=== PATIENT | female | born 2000 | race Caucasian/White ===

== ENCOUNTER 2020-05-18 12:40 | Emergency (ER) | payer MEDICAID, SELFPAY ==
[2020-05-18 12:45] VITALS: BP 137/93; PULSE 85; RESP 16; TEMP 36.9; O2SAT 98; BMI 29.5
--- NOTE | 2020-05-18 13:06 | ED_ITS ---
HPI - Female Genitourinary General: Chief complaint: Vaginal Bleeding Stated complaint: wants to confirm Time Seen by Provider: 05/18/20 12:45 Source: patient and family Mode of arrival: ambulatory Limitations: no limitations History of Present Illness: HPI Narrative: Maggy is a nice 19-year-old female who comes in complaining of vaginal bleeding. The patient states that she has had 4+ home tests but was seen in [place] ER last night and was told she had a negative urine test. Patient states she is due for her menstrual cycle now and the cramping is typical for her menstrual cycle. He denies any vaginal discharge. She denies any fevers, chills, back pain or other complaints. Patient is just concerned because she states she even had a positive test after going home from [facility] last night. She not tried anything for her cramping or pain. She denies any nausea vomiting or associated symptoms. The abdominal cramping is low in the suprapubic area and intermittent. Associated symptoms: Reports abdominal pain; Deny headache(s), nausea or syncope Review of Systems Const: Denies: fever(s), chills, body aches, fatigue, malaise or diaphoresis Eyes: Denies: change in vision, blurry vision, photophobia, eye discomfort, eye discharge or eye redness ENMT: Denies: throat pain, odynophagia, hoarseness, swelling of lips/tongue, ear or mastoid pain, ear discharge, change in hearing or nasal discharge Card: Denies: chest pain, palpitations, irregular heart rhythm, edema, lightheadedness, syncope, pre-syncope, dyspnea on exertion or orthopnea Resp: Denies: dyspnea, productive cough, non-productive cough, wheezing, hemoptysis or chest congestion GI: Reports: abdominal pain; Denies: nausea, vomiting, hematemesis, coffee ground emesis, heartburn, diarrhea, constipation, GI cramping, hematochezia or melena : Reports: vaginal bleeding; Denies: flank pain, dysuria, urinary frequency, urinary urgency or hematuria Musc: Denies: neck pain, back pain, extremity pain, extremity swelling, joint pain, joint swelling, joint redness, joint warmth or joint stiffness Skin/Breast: Denies: rash, pruritus, erythema or skin tenderness Neuro: Denies: headache(s), numbness in extremities, weakness in extremities, sensory changes, lack of coordination, difficulty walking, dizziness, vertigo, confusion, Slurred speech present or seizure-like activity Say/Lymph: Denies: easy bruising, easy bleeding, petechiae, purpura or enlarged lymph nodes All/Imm: Denies: urticaria, throat swelling, tongue swelling, facial swelling or acute wheezing PFSH ED PFSH: Medical History Fibromyalgia Scoliosis Physical Exam Const: COMMON NORMALS: no acute distress, patient oriented x3, no limitations, healthy appearing and well nourished GENERAL APPEARANCE: cooperative, well kempt and well developed HENMT: COMMON NORMALS: normocephalic, atraumatic, external ears normal, EAC's normal and Normal external nose present HEAD & SCALP: normal to inspection, normocephalic and atraumatic FACE & SINUS: normal facial exam and face symmetric NOSE: Normal external nose present and Normal nares present EXTERNAL EAR: Yes external ears normal EXTERNAL AUDITORY CANAL: EAC's normal MOUTH: Normal oral and palatal mucosa present, lip normal and tongue normal Eye: COMMON NORMALS: Equal, round and reactive pupils present and conjunctivae normal GENERAL EYE: appearance normal, both eyes and all related structures ALIGNMENT: Yes alignment normal PERIORBITAL: periorbital findings normal EYELID: eyelids normal CONJUNCTIVA: Yes conjunctivae normal SCLERA: sclerae normal PUPIL: Yes Equal, round and reactive pupils present Neck/C-Spine: COMMON NORMALS: full ROM, no lymphadenopathy, supple, no meningeal signs and no JVD GENERAL: Yes normal visual inspection and Yes trachea midline Chest: COMMONS NORMALS: normal inspection of the chest and normal palpation of entire chest wall Resp: COMMON NORMALS: normal respiratory effort, No retractions, No use of accessory muscles and clear to auscultation bilaterally EFFORT & INSPECTION: Yes able to speak in complete sentences and Yes symmetric chest movement AUSCULTATION: clear to auscultation bilaterally, no crackles, no rales, no rhonchi and no wheezes Cardio: COMMON NORMALS: no JVD, regular rate, regular rhythm, S1 normal heart sound present and S2 normal heart sound present RATE: regular rate RHYTHM: regular rhythm HEART SOUNDS: S1 normal heart sound present, S2 normal heart sound present, no click, no gallops, no murmurs, no rubs and abnormal split S2 GI: COMMON NORMALS: Soft to palpation and No hepatosplenomegaly present PALPATION: Yes Soft to palpation, No Tenderness to palpation present (GI), No Guarding due to palpation present (GI), No Rigid due to palpation, Yes No hepatosplenomegaly present, No Hernia present, No Palpable mass present and No Pulsatile mass present : COMMON NORMALS: Yes no CVA tenderness BLADDER/KIDNEY EXAM: Yes no CVA tenderness EXTERNAL FEMALE EXAM: No Hernia present Back/Pelvis: COMMON NORMALS: no CVA tenderness, thoracic and lumbar spine normal to inspection, no thoracic nor lumbar tenderness and thoraco-lumbar ROM normal Extremity: COMMON NORMALS: normal to inspection, full ROM, capillary refill normal, no joint enlargement, no clubbing, cyanosis or edema and no calf tenderness Neuro: COMMON NORMALS: patient oriented x3, CN's II-XII intact bilaterally, moves all extremities, no focal motor deficits and no sensory deficits noted MENINGEAL SIGNS: Yes no meningeal signs SPEECH: speech normal Psych: COMMON NORMALS: mental status grossly normal, Normal thought process present, cooperative, normal affect, speech normal and activity/motor behavior normal APPEARANCE: Yes well kempt SPEECH: Yes normal speech THOUGHT PROCESS: Normal thought process present Skin: COMMON NORMALS: no rashes or lesions noted, turgor normal, no jaundice, no petechiae and no mottling GENERAL SKIN EXAM: no rashes or lesions noted and turgor normal Course Vital Signs: Vital signs: Vital Signs Temperature 98.4 F 05/18/20 12:45 Pulse Rate 85 05/18/20 12:45 Respiratory Rate 18 05/18/20 13:15 Blood Pressure 137/93 05/18/20 12:45 Pulse Oximetry 98 05/18/20 12:45 MDM - Female MDM Narrative: Medical decision making narrative: The patient is declining any additional lab work, pelvic exam, pelvic ultrasound or further evaluation. When she found out she was not the patient has become somewhat upset as I believe she wanted to be . She understands that other things such as serious cause of bleeding, appendicitis and multiple other intra-abdominal serious even life-threatening pathologies cannot be ruled out. She wants to go home and she states she plans on taking another home test in 2 days. Patient was again encouraged and offered her further work-up here but she declined. She was to be discharged. She does agree to return should her symptoms change or worsen. The patient was warned but yet she was welcome to return. Lab Data: Labs: Lab Results 05/18/20 Range/Units 13:00 HCG, Qual Negative (Negative) Discharge Plan Discharge Patient Disposition: Home Clinical Impression: Vaginal bleeding Condition: Stable Discharge Orders: Discharge Order (Routine); Ordered 05/18/20 Ordered By: Hollie Goldman Referrals: Nazario Snyder MD [Physician] - 1-3 days Discharge Diet: Advance as tolerated Discharge Activity: Increase activity as tolerated Patient Instructions: Menstruation (ED) Activity Restrictions/Additional Instructions: Please return to the ER immediately for any of the signs or symptoms listed on your discharge instruction sheets, worsening/changing of your symptoms, you are not getting better as quickly as expected, or for ANY other cause or concerns. You have declined any further work-up such as blood work, ultrasound and further investigation as to cause to your cramping. I have recommended this work-up but you have declined. If you change your mind, your bleeding becomes heavier, you develop a fever, you develop vaginal discharge, or you develop urinary symptoms you are free to return at any time for further evaluation and care. If you simply change your mind you are also welcome to return anytime for further evaluation and care. Coding Level of Care Code ED Radio Frequency Engineer for Vilma Suazo
[2020-05-18 13:15] VITALS: RESP 18
[2020-05-18 13:19] LABS: HCG, Serum Qual Negative (Negative)
[2020-05-18 13:52] VITALS: BP 113/85; PULSE 73; RESP 16; O2SAT 98
== END 2020-05-18 13:52 | disposition home or self-care (01) ==
PROVIDERS: Emergency Provider Emergency Medicine
DX: N93.9 Abnormal uterine and vaginal bleeding, unspecified (principal)
CPT/HCPCS: 12345; 36415; 84703; 99281; 99282

== ENCOUNTER → 2020-07-23 08:25 | Outpatient (BNVA) | payer MEDICAID, SELFPAY | PROVIDERS: Visit Provider Obstetrics & Gynecology | DX: Z34.90 Encounter for supervision of normal pregnancy, unspecified, unspecified trimester (principal) | CPT/HCPCS: 84702 ==

== ENCOUNTER → 2021-01-06 09:46 | Day surgery (SDC) | payer MEDICAID, SELFPAY ==
[2021-01-06 10:10] VITALS: BP 137/87; PULSE 99; RESP 16; TEMP 36.7; O2SAT 98
[2021-01-06 12:04] VITALS: BP 137/87; PULSE 99; RESP 16; TEMP 36.7; O2SAT 99
== END ==
PROVIDERS: Visit Provider Family Medicine
DX: O26.899 Other specified pregnancy related conditions, unspecified trimester (principal); Z3A.00 Weeks of gestation of pregnancy not specified; Z67.91 Unspecified blood type, Rh negative
CPT/HCPCS: 36415; 86850; 86900; 90384; 96372

== ENCOUNTER → 2021-01-12 15:19 | Outpatient (BNVA) | payer MEDICAID, SELFPAY | PROVIDERS: Visit Provider Obstetrics & Gynecology | DX: Z34.80 Encounter for supervision of other normal pregnancy, unspecified trimester (principal); Z3A.30 30 weeks gestation of pregnancy | CPT/HCPCS: 82950; 84315; 85025 ==

== ENCOUNTER 2021-01-30 13:27 | Outpatient (CLI) | payer MEDICAID, SELFPAY ==
[2021-01-30 13:44] VITALS: BP 124/83; PULSE 100
[2021-01-30 13:51] VITALS: RESP 16; TEMP 36.6
[2021-01-30 13:58] VITALS: BMI 33.2
[2021-01-30 14:04] LABS: Add Urine Microscopic? NO; Charge for UA Resulting for Rev
[2021-01-30] MEDS: ondansetron 2 mg/ML SDV 2 mL 4 MG IVP (14:07)
[2021-01-30 14:09] LABS: Basophils # 0.1 10^3/uL (0.0-0.1); Basophils % 0.5 %; Eosinophils # 0.1 10^3/uL (0.0-0.8); Eosinophils % 0.5 %; Hemoglobin 12.4 g/dL (11.5-15.3); Lymphocytes # 2.6 10^3/uL (0.8-4.8); Lymphocytes % 21.5 %; Mean Corpuscular HGB Conc 33.5 g/dL (30.0-36.0); Mean Corpuscular Hemoglobin 29.8 pg (28.0-34.0); Mean Corpuscular Volume 88.9 fL (81-99); Mean Platelet Volume 11.6 fL (7.4-10.4); Monocytes # 0.8 10^3/uL (0.2-0.9); Monocytes % 6.4 %; Neutrophils # 8.47 10^3/uL (1.8-7.7); Neutrophils % 70.7 %; Nucleated Red Blood Cells % 0 %; Platelet Count 250 10^3/cmm (130-400); Red Blood Count 4.16 10^6/uL (4.1-5.3); Red Cell Distribution Width 12.8 % (12.1-15.1)
[2021-01-30 14:12] LABS: Bilirubin Urine Neg (Negative); Blood Urine Neg (Negative); Glucose Urine UA Norm (Normal); Ketones Urine 2+ (Negative); Leukocyte Esterase Urine Negative (Negative); Nitrate Urine Negative (Negative); Protein Urine Neg (Negative); Sulfosalicylic Acid Urine Negative (Negative); Urine Appearance Clear (CLEAR); Urine Color Yellow (Yellow); Urobilinogen Urine Norm (Negative); pH Urine 8 (5-7)
[2021-01-30 14:22] VITALS: BP 114/68; PULSE 75
[2021-01-30 14:25] LABS: Alanine Aminotransferase 14 U/L (0-33); Albumin Level 3.4 g/dL (3.5-5.2); Alkaline Phosphatase 103 IU/L (35-105); Aspartate Amino Transferase 16 U/L (0-32); Blood Urea Nitrogen 9 mg/dL (6-20); Calcium 8.1 mg/dL (8.5-10.5); Carbon Dioxide 21 mmol/L (22-29); Chloride 104 mmol/L (98-107); Globulin 3.2 g/dL (1.3-4.6); Glomerular Filtration Rate 201.5 mL/min (90-130); Glucose 78 mg/dL (65-115); Osmolality Calculated 280 mOsm/kg (285-295); Sodium 136 mmol/L (136-145); Total Bilirubin 0.2 mg/dL (0.15-1.2); Total Protein 6.6 g/dL (6.6-8.7); Uric Acid 3.6 mg/dL (2.4-5.7)
[2021-01-30 14:41] VITALS: BP 115/75; PULSE 79
[2021-01-30 14:43] LABS: Urine Creatinine 79 mg/dL (28-217); Urine Protein Random 7 mg/dL
[2021-01-30 14:44] LABS: UPRO/UCREAT Ratio 0.09 mg/mg CR
[2021-01-30 15:01] VITALS: BP 110/73; PULSE 78
== END 2021-01-30 15:35 | disposition home or self-care (01) ==
LOC: OPOB 13:36 → OBGYN 13:37
PROVIDERS: Visit Provider Obstetrics & Gynecology
DX: O21.9 Vomiting of pregnancy, unspecified (principal); Z3A.00 Weeks of gestation of pregnancy not specified
CPT/HCPCS: 59025; 80053; 81003; 82570; 84156; 84550; 85025; 96360; 99211; J2405

== ENCOUNTER → 2021-02-11 13:25 | Outpatient (BNVA) | payer MEDICAID, SELFPAY | PROVIDERS: Visit Provider Nurse Practitioner Women's Health | DX: O99.340 Other mental disorders complicating pregnancy, unspecified trimester (principal); R50.9 Fever, unspecified; F32.9 Major depressive disorder, single episode, unspecified; F41.9 Anxiety disorder, unspecified; Z11.52 Encounter for screening for COVID-19; O99.213 Obesity complicating pregnancy, third trimester | CPT/HCPCS: 84315; 87635 ==

== ENCOUNTER → 2021-02-23 08:30 | Outpatient (BNVA) | payer MEDICAID, SELFPAY | PROVIDERS: Visit Provider Obstetrics & Gynecology | DX: O99.340 Other mental disorders complicating pregnancy, unspecified trimester (principal); F32.9 Major depressive disorder, single episode, unspecified; F41.9 Anxiety disorder, unspecified; Z11.52 Encounter for screening for COVID-19; O99.213 Obesity complicating pregnancy, third trimester | CPT/HCPCS: 84315; 87081 ==

== ENCOUNTER 2021-03-17 12:50 | Outpatient (CLI) | payer MEDICAID, SELFPAY ==
[2021-03-17] VITALS (7 sets, daily range): BP systolic 120–130; BP diastolic 75–92; PULSE 75–91; RESP 18; TEMP 36–36.4; BMI 35.2
--- NOTE | 2021-03-17 15:12 | P.PCN_ITS ---
Procedure/Consent Procedure Narrative: NONSTRESS TEST: Place of test: [facility] Indication: 20-year-old 3 para 0-0-2-0 at 39 weeks and 3 days, abdominal pain/contractions Date and time of test: March 17, 2021, 2:30 PM Baseline: 125 Variability: Moderate variability Accelerations: Accelerations present Decelerations: No decelerations Tocometry: Contractions every 3 to 7 minutes INTERPRETATION: NST reactive, continue kick counts
[2021-03-17] MEDS: hyDROXYzine 25 mg Capsule 50 MG PO (15:21)
== END 2021-03-17 15:35 | disposition home or self-care (01) ==
LOC: OPOB 12:55 → OBGYN 12:56
PROVIDERS: Visit Provider Obstetrics & Gynecology
DX: O26.893 Other specified pregnancy related conditions, third trimester (principal); Z3A.39 39 weeks gestation of pregnancy; R10.9 Unspecified abdominal pain
CPT/HCPCS: 59025; 87635; 99211

== ENCOUNTER 2021-03-18 18:05 | Outpatient (CLI) | payer MEDICAID, SELFPAY ==
[2021-03-18] VITALS (10 sets, daily range): BP systolic 117–150; BP diastolic 69–93; PULSE 69–96; RESP 18; TEMP 36.9; BMI 35.2
--- NOTE | 2021-03-18 20:16 | USR_ITS ---
PROCEDURE INFORMATION: Exam: US Biophysical Profile Without Non-Stress Test Exam date and time: 03/18/2021 8:16 PM Age: 20 years old Clinical indication: status abnormalities: ; Other: Abnormal tracings; Single gestation; Third trimester (28 wks 0 days until delivery); ; Additional info: tracing TECHNIQUE: Imaging protocol: US biophysical profile without non-stress testing. COMPARISON: US OB >= 14 weeks fetus [id number] 11/05/2020 9:33 AM FINDINGS: BIOPHYSICAL PROFILE: Breathin/2 Gross body movements: 2/2 tone: 2/2 Qualitative amniotic fluid: 2/2 Biophysical Profile Score: 8/8 There is a single living intrauterine with a heart rate of 144 bpm. The presentation is cephalic. US/US OB >= 14 weeks fetus [id number] IMPRESSION: Biophysical profile score is 8 out of 8.
[2021-03-18 21:20] LABS: Add Urine Culture? No; Bacteria Urine TRACE /hpf; Bilirubin Urine Neg (Negative); Blood Urine Neg (Negative); Glucose Urine UA Norm (Normal); Ketones Urine Negative (Negative); Leukocyte Esterase Urine Negative (Negative); Mucus Urine TRACE /hpf; Nitrate Urine Negative (Negative); Protein Urine Neg (Negative); RBC Urine 0-4 /hpf (0-2); Specific Gravity, Urine 1.015 (1.005-1.030); Urine Appearance Clear (CLEAR); Urine Color Yellow (Yellow); Urobilinogen Urine Norm (Negative); pH Urine 6 (5-7)
[2021-03-18] MEDS: hyDROXYzine 25 mg Capsule PO (22:27)
== END 2021-03-18 22:34 | disposition home or self-care (01) ==
LOC: OPOB 18:11 → OBGYN 18:13
PROVIDERS: Visit Provider Obstetrics & Gynecology
DX: O26.899 Other specified pregnancy related conditions, unspecified trimester (principal); Z3A.00 Weeks of gestation of pregnancy not specified; R10.9 Unspecified abdominal pain
CPT/HCPCS: 59025; 76805; 81001; 99211

== ENCOUNTER 2021-03-19 06:11 | Inpatient (IN) | payer MEDICAID, SELFPAY ==
[2021-03-19] VITALS (46 sets, daily range): BP systolic 102–178; BP diastolic 50–93; PULSE 60–157; RESP 17–18; O2SAT 97–100; BMI 37.4
[2021-03-19] MEDS: lactated ringers 1,000 ML 999 ML IV (06:21)
[2021-03-19] MEDS: ampicillin 2,000 MG in sodium chloride 0.9% (plus) 50 ML 100 MG IV (06:21)
[2021-03-19] MEDS: fentaNYL 50 mcg/mL INJ 2mL IVP ×2 (06:22→07:35)
[2021-03-19 06:25] LABS: Basophils # 0.1 10^3/uL (0.0-0.1); Basophils % 0.3 %; Hematocrit 37.1 % (37.0-47.0); Hemoglobin 12.6 g/dL (11.5-15.3); Lymphocytes # 1.1 10^3/uL (0.8-4.8); Lymphocytes % 5.6 %; Mean Corpuscular Hemoglobin 29.3 pg (28.0-34.0); Mean Corpuscular Volume 86.3 fL (81-99); Mean Platelet Volume 12.2 fL (7.4-10.4); Monocytes # 0.6 10^3/uL (0.2-0.9); Monocytes % 2.8 %; Neutrophils # 18.25 10^3/uL (1.8-7.7); Neutrophils % 90.8 %; Nucleated Red Blood Cells % 0 %; Platelet Count 266 10^3/cmm (130-400); Red Cell Distribution Width 13.7 % (12.1-15.1); White Blood Count 20.1 10^3/uL (4.0-10.0)
[2021-03-19 07:58] LABS: Amphetamines Screen Urine Negative (Negative); Barbiturates Screen Urine Negative (Negative); Benzodiazepines Screen Urine Negative (Negative); Cocaine Screen Urine Negative (Negative); Opiate Screen Urine Negative (Negative); PCP Screen Urine Negative (Negative); THC Screen Urine Positive (Negative)
[2021-03-19] MEDS: ampicillin 1,000 MG in sodium chloride 0.9% (plus) 50 ML 100 MG IV (09:50)
--- NOTE | 2021-03-19 10:16 | ANES.PREANE2 ---
Pre-Anesthetic Assessment Pre-Anesthetic Assessment: Height/Weight: Height 1.7 m Weight 108.409 kg Pulse Resp BP Pulse Ox 71 17 132/71 100 03/19/21 10:07 03/19/21 07:36 03/19/21 10:07 03/19/21 08:15 Was Beta Kathy taken within 24 hours: N/A Was Clonidine taken within 24 hours: N/A Social: Social History: Tobacco and No alcohol Exam: Pre-Anes Outpt Exam: alert and oriented x 3 Pulmonary: Pulmonary: None reported CV/HEM: CV/HEM: None reported : : None reported Hepatic: Hepatic: None reported GI: GI: None reported Metabolic: Metabolic: None reported Musc/skel: Musc/skel: Lower Back Pain and Scoliosis Neuropsych: Neuropsych: None reported Anesthetic Plan: ASA status: 2 Anesthesia: Regional (specify below) Other: Labor Epdiural; risks and benefits disc in detail, including permanent injuries and failure. Meds/Allergies Current Medications: Current Medications Generic Name Dose Route Start Last Admin Trade Name Sammyq PRN Reason Stop Dose Admin Fentanyl 25 - 100 mcg 03/19/21 05:47 03/19/21 07:35 Fentanyl 50 Mcg/ Ml Inj 2ml IVP 25 mcg Q1H PRN Administration SEVERE PAIN Ropivacaine 200 mg in 100 mls @ 13 mls/hr 03/19/21 06:00 03/19/21 08:13 Naropin Premix EPIDURAL 13 mls/hr .[id number] KEVIN Administration Lactated Ringer's 1,000 mls @ 999 m ls/hr 03/19/21 05:47 03/19/21 06:21 Lactated Ringers IV 999 mls/hr .Q1H1M PRN Administration See label comment s Ampicillin Sodium 1,000 mg/ 50 mls @ 100 mls/ hr 03/19/21 10:00 03/19/21 09:50 Sodium Chloride IV 100 mls/hr Q4H KEVIN Administration Protocol PFSH Anesthesia PFSH: Medical History Anxiety and depression Chronic post-traumatic stress disorder (PTSD) Fibromyalgia No pertinent past medical history neghx: htn,dm,thyroid,dvt/pe,herpes -----denies partner with herpes Scoliosis Surgical History History of tonsillectomy and adenoidectomy (~2012) Hx of appendectomy (~2014) Family History Family/Other Breast cancer Maternal Aunt x2-- dx age unknown Father Diabetes Mother Hypertension Thyroid disease Grandmother Stroke Maternal and Paternal Grandfather Stroke Maternal Denies family history of Colon cancer Ovarian cancer Heart disease Uterine cancer Social History Additional social history: - Tobacco use: Never Alcohol use: occasionally prior to Drug use: Marijuana-- Medical Marijuana Card -- few times daily Female Reproductive History: : 3 Data Anesthesia CBC & Chem 7: 03/19/21 06:00 Other Labs: Laboratory Results - last 48 hr 03/18/21 03/19/21 21:00 06:00 WBC 20.1 H RBC 4.30 Hgb 12.6 Hct 37.1 MCV 86.3 MCH 29.3 MCHC 34.0 RDW 13.7 Plt Count 266 MPV 12.2 H Neut % (Auto) 90.8 Lymph % (Auto) 5.6 [place] % (Auto) 2.8 Eos % (Auto) 0.0 Baso % (Auto) 0.3 Neut # (Auto) 18.25 H Lymph # (Auto) 1.1 [place] # (Auto) 0.6 Eos # (Auto) 0.0 Baso # (Auto) 0.1 Nucleated RBC % (auto) 0 Nucleated RBCs # 0.0 Urine Opiates Screen Negative Ur Barbiturates Screen Negative Ur Phencyclidine Scrn Negative Ur Amphetamines Screen Negative U Benzodiazepines Scrn Negative Urine Cocaine Screen Negative U Marijuana (THC) Screen Positive H Cardiac Studies: No Data to Display
--- NOTE | 2021-03-19 10:19 | ANES.PROC ---
Anesthesia Procedures Procedure/Date: 03/19/21 Epidural: Time Out Performed: Yes Consents Signed: Procedure Consent Consent: requested by attending/covering physician, risks and benefits reviewed and patient agrees to proceed Lumbar Level: L4-L5 Epidural position: sitting Epidural procedure: sterile prep of area, 1% lidocaine to numb the area, neg for paresthesia, 1.5% xylocaine 1:200k epi, no systemic response, sterile dressing applied, L.U.D. no apparent complications and 0.2% Ropiavacaine @ mls/hr (13) Additional Comments: Easy, single pass with distinct saline SHIVAM. Catheter advanced with ease. No paresthesia or complication. Very well tolerated.
[2021-03-19] MEDS: oxytocin 30 UNIT/500 ML BAG IV (11:30)
[2021-03-19] MEDS: dextrose 5%-lactated ringers 1,000 ML 125 ML IV (12:16)
--- NOTE | 2021-03-19 14:18 | PM.DELIVERY ---
Delivery Note: Date of delivery: March 19, 2021 Pre-delivery diagnoses: Term Post-delivery diagnoses: Term delivered Procedure: Spontaneous vaginal delivery Op report anesthesia: Epidural Delivering Physician: River Sewell MD Estimated blood loss (mL): 300 Pre-Delivery Course: 20 year old G3 P 0-0-2-0 established patient with LMP of 06/14/2020, ELIU 03/21/2021, placing her at 39+4 weeks who has been receiving care from [facility]. She has been experiencing painful uterine contractions for the past 4 hours. The contractions are occurring at 4 minute intervals with approximately 30 second duration. She continues to feel movement between the contractions. She denies vaginal bleeding or rupture of membranes. CC: Onset of labor at term. HPI: Received appropriate care. Daily vitamins since two months prior to conception. labs have all been normal, including negative for HIV. She was found to positive for Group B Strep from screening at 36 weeks. She has gained approximately 28 lbs throughout the . She denies a history of HTN during . Glucose tolerance screening for gestational diabetes was negative. Delivery: The patient was noted to be complete and pushing, so was placed in the dorsal lithotomy position, prepped and draped in the usual sterile fashion for a vaginal delivery. Pt. Noted to have epidural anesthesia. At 1415 the patient delivered a viable at 39+4 weeks female weighing 3240 g with scores of 8 and 9 at one and five minutes, respectively. The vertex was delivered spontaneously over an intact perineum. The patient was asked to push and the head delivered spontaneously in the ARIE position, over an intact perineum. A nuchal cord was checked and 1 noted, and delivered through and released around head as necessary. The anterior shoulder delivered easily and the posterior shoulder followed. The remainder of the infant was easily delivered and the oropharynx and nasopharynx was bulb suctioned. The infant was noted to have spontaneous cry and spontaneous movement of all four extremities. The cord was clamped x 2 and cut and noted to have 2 arteries and one vein. The was passed to the mother's abdomen where the dust sampler and nursing personnel were in attendance. Cord blood sample was then obtained. The placenta delivered intact spontaneously and the uterus was explored. 20 units of Pitocin was placed in the IV bag to firm the uterus. Examination of the cervix and vaginal vault did not reveal any lacerations. A vaginal pack was then placed. Examination of the perineum showed no lacerations noted. The vaginal pack was then removed. The patient tolerated this procedure well, and recovered in L&D with her infant in their LDR room. All sponge and needle counts were correct. A&P Assessment and plan (1) GBS (group B Streptococcus carrier), +RV culture, currently : Status: Acute (2) Term delivered: Status: Acute Coding Level of Care Code Acute Caster Investment Casting for Chg Fwd Diagnoses GBS (group B Streptococcus carrier), +RV culture, currently O99.820 Term delivered O80
--- NOTE | 2021-03-19 18:35 | PC.NURSE ---
WILL SMART AUDOGRAPH OPERATOR CAME TO TAKE OUT EPIDURAL CATHETER FROM PT BACK DUE NURSE UNABLE TO REMOVE IT, WILL SMART AUDOGRAPH OPERATOR PUT PT INTO THE SITTING POSITION AND HUGGED A PILLOW, WILL SMART APPLIED TRACTION AND THE EPIDURAL CATHETER CAME OUT IN 1 MOTION.
[2021-03-19] MEDS: ibuprofen 800 mg tablet PO (21:19)
[2021-03-20] VITALS (8 sets, daily range): BP systolic 114–147; BP diastolic 58–92; PULSE 57–76; RESP 16–18; TEMP 36.6–36.7; O2SAT 81–100
[2021-03-20 03:32] LABS: Hematocrit 32.1 % (37.0-47.0); Hemoglobin 10.6 g/dL (11.5-15.3); Mean Corpuscular Hemoglobin 29.5 pg (28.0-34.0); Mean Corpuscular Volume 89.4 fL (81-99); Platelet Count 193 10^3/cmm (130-400); Red Blood Count 3.59 10^6/uL (4.1-5.3); Red Cell Distribution Width 14.4 % (12.1-15.1); White Blood Count 15.9 10^3/uL (4.0-10.0)
[2021-03-20] MEDS: acetaminophen 325 mg Tablet 650 MG PO (04:17)
[2021-03-20] MEDS: ibuprofen 800 mg tablet PO ×3 (10:03→20:58)
[2021-03-20] MEDS: prenatal vitamin Capsule 1 CAP PO (10:03)
[2021-03-20] MEDS: docusate sodium 100 mg Capsule PO ×2 (10:03→17:56)
[2021-03-20] MEDS: lanolin oint 7 gm 1 APPLIC TOPICAL (17:54)
[2021-03-21 04:40] VITALS: BP 108/59; PULSE 58
[2021-03-21] MEDS: acetaminophen 325 mg Tablet 650 MG PO (05:58)
[2021-03-21 07:58] VITALS: BP 145/81; PULSE 55
[2021-03-21 08:14] VITALS: BP 120/72; PULSE 58
[2021-03-21] MEDS: ondansetron 4 MG Tablet PO (08:57)
[2021-03-21 09:40] VITALS: RESP 16; O2SAT 98
--- NOTE | 2021-03-21 10:21 | P.DS_ITS ---
Discharge Providers MOTOR SETTER Date of Admission: 03/19/21 06:11 Date of Discharge: 03/21/21 Attending Provider at Admission: River Sewell MD Attending Provider at Discharge: River Sewell MD Diagnoses at Discharge Discharge Diagnosis (1) GBS (group B Streptococcus carrier), +RV culture, currently : Status: Acute (2) Term delivered: Status: Acute Reason for Visit Reason for Visit: contactions Hospital Course Hospital Course Mrs. Antonio 20-year-old female G1, P0 at estimated gestational age at 39 weeks 4 days came to labor and delivery in active labor. She progressed to have a spontaneous vaginal delivery without complications. At the time of delivery was noted with 1 nuchal cord. She delivered a female infant weight 3240g letter Apgars 8/9. observation was uneventful. She is afebrile hemodynamically stable. Infant had to stay an additional 24 hours due to GBS positive. Tolerated diet well. Ambulating without difficulty. Breast- feeding without difficulty. Information Peripartum Data: Infant Delivery Method: Vaginal Physical Exam Narrative: EXAM NARRATIVE: GA; alert and oriented x 3 HEENT: normal Breasts: engorged Nipples - skin intact Lungs; clear to auscultation Heart: regular rhythm, no murmurs. Abd: Appropriately tender. BS+. Uterine fundus below umbilicus. No Fundal Tenderness. Perineum: normal lochia. Extremities: no edema, no cyanosis, no tenderness. Urinary Catheter Management^: Lopes: Cath Placed During This Visit: yes Urinary Catheter Date of Insertion: 03/19/21 Urinary Catheter Time of Insertion: 10:20 Discharge Data Data Completed and Pending: Labs from last 24 hours 03/19/21 09:15 Blood Type O Negative Rho(D) Type Negative / 0 Antibody Screen Negative Vitals: Last Vital Signs Temp 97.9 F 03/20/21 18:04 Pulse 58 L 03/21/21 08:14 Resp 16 03/21/21 09:40 BP 120/72 03/21/21 08:14 Pulse Ox 98 03/21/21 09:40 Discharge Plan Discharge Patient Disposition: Home Condition: Stable Prescriptions: New ibuprofen 800 mg tablet 800 mg PO TID PRN (Reason: pain) Qty: 60 RF: 0 Iron (ferrous sulfate) 325 mg (65 mg iron) tablet 325 mg PO BID Qty: 60 RF: 0 Colace 100 mg capsule 100 mg PO BID Qty: 60 RF: 0 acetaminophen 325 mg capsule 325 mg PO Q4H PRN (Reason: fever or pain) Qty: 60 RF: 0 Continued prenat.vits,tom,[id number] Tablet 1 tab PO DAILY RF: 0 ferrous sulfate 134 mg (27 mg iron) tablet 134 mg PO DAILY RF: 0 Discharge Orders: Discharge Order (Routine); Ordered 03/21/21 Ordered By: River Sewell Discharge Diet: Usual diet Discharge Activity: Increase activity as tolerated Patient Instructions: Depression (GEN), Pre-eclampsia and Eclampsia (DC), Bleeding (DC), OB Discharge Report, OB Anesthesia Instructions, OB Food/Drug Interaction Guide, Opioid Safety, OB Home Care, OB Proud Parent Packet, OB Vaginal Deliveries - [facility] Activity Restrictions/Additional Instructions: 1. Please call [facility] clinic on next working day to make your appointment in 6 weeks. 2. Please stay home until you come back to the clinic on first post-operative check up. 3. Please follow instructions on your medications CAREFULLY. 4. If you have abdominal incision, do not cover it unless dressing is necessary because of drainage. OK to shower, but avoid bath. Leave steri-strips until they fall off. If they are still on one week after surgery, you may remove them. 5. If you had vaginal surgery or vaginal repair, Dr. Sewell may instruct you to take SITZ bath. 6. Yellow, blood tinged odorous vaginal discharge is usually normal after hysterectomy or vaginal surgeries. 7. No sexual intercourse, tampons, or douches until you are completely released from the post-operative care. 8. Avoid constipation by eating right and maybe using some Metamucil or Milk of Magnesia. 9. All prescription refills are given during the working hours. Please do no wait till it runs out. Call the clinic at [phone] before your medication runs out. The clinic will get in touch with your doctor to prescribe medications if necessary. 10. Please remain within 40 mile radius from our hospital because emergencies do happen now and then during the post-operative period. 11. If you have stairs at home, take one step at a time slowly and minimize the number of trips. It helps to stay in one floor for the next few days. No lifting except what you can lift by one hand until you are released from the post-operative care. 12. Driving is discouraged until you are well healed. It may be 3-4 weeks before you feel strong enough to drive. You should be able to turn and look through the rear window without pain and you should be able to push the brake pedal very hard without pain before you drive. No fast rules, but SAFETY should be your primary concern. DO NOT drive if you are on sedating medications such a s narcotics. 13. Call the clinic (during working hours) to make urgent appointment or go to the Emergency room, if any of the following occurs: i. Vaginal bleeding becomes heavy, more than a period. ii. Incision becomes red and sore, or drains pus. iii. Your temperature is over 100.4 or you have chill. iv. IV site becomes red and swollen (a little ``knot?? is usually OK) v. Persistent nausea and vomiting vi. Persistent constipation or diarrhea vii. Rash or allergic reaction to medications. Discharge Attestations MOTOR SETTER Time Spent in Discharge Care*: greater than 30 min Coding Level of Care Code Acute Aerial Advertiser for Chg Fwd Diagnoses GBS (group B Streptococcus carrier), +RV culture, currently O99.820 Term delivered O80
[2021-03-21 12:16] VITALS: RESP 16; O2SAT 98
== END 2021-03-21 11:15 | disposition home or self-care (01) | DRG 806 ==
LOC: OBGYN 06:16
PROVIDERS: Admitting Provider Obstetrics & Gynecology; Visit Provider Obstetrics & Gynecology
DX: O69.81X0 Labor and delivery complicated by cord around neck, without compression, not applicable or unspecified (principal); O99.324 Drug use complicating childbirth; Z37.0 Single live birth; F12.90 Cannabis use, unspecified, uncomplicated; O99.344 Other mental disorders complicating childbirth; F32.9 Major depressive disorder, single episode, unspecified; F41.9 Anxiety disorder, unspecified; F43.12 Post-traumatic stress disorder, chronic; O99.820 Streptococcus B carrier state complicating pregnancy; O75.89 Other specified complications of labor and delivery; M79.7 Fibromyalgia; Z3A.39 39 weeks gestation of pregnancy
CPT/HCPCS: 36415; 59025; 59409; 80306; 83986; 85025; 85027; 85460; 86850; 86900; 90384; 99211; J0290; J2795; J3010; Q0162

== ENCOUNTER → 2021-04-27 11:20 | Outpatient (BNVA) | payer MEDICAID, SELFPAY | PROVIDERS: Visit Provider Obstetrics & Gynecology | DX: R10.2 Pelvic and perineal pain (principal) | CPT/HCPCS: 80053; 85025; 87070; 87205; 87481; 87512; 87798; 87799 ==

== ENCOUNTER → 2021-05-06 13:54 | Outpatient (BNVA) | payer MEDICAID, SELFPAY | PROVIDERS: Visit Provider Obstetrics & Gynecology | DX: R93.5 Abnormal findings on diagnostic imaging of other abdominal regions, including retroperitoneum (principal); R10.2 Pelvic and perineal pain | CPT/HCPCS: 76830; 84702 ==

== ENCOUNTER → 2021-05-07 10:11 | Outpatient (BNVA) | payer MEDICAID, SELFPAY | PROVIDERS: Visit Provider Obstetrics & Gynecology | DX: Z20.822 Contact with and (suspected) exposure to COVID-19 (principal); N94.89 Other specified conditions associated with female genital organs and menstrual cycle; R10.2 Pelvic and perineal pain; N85.8 Other specified noninflammatory disorders of uterus | CPT/HCPCS: 87635 ==

== ENCOUNTER 2021-05-12 06:20 | Day surgery (SDC) | payer MEDICAID, SELFPAY ==
[2021-05-11 08:07] VITALS: BMI 34.0
[2021-05-12] VITALS (12 sets, daily range): BP systolic 96–125; BP diastolic 54–87; PULSE 61–80; RESP 12–20; TEMP 36.1–36.6; O2SAT 94–100
--- NOTE | 2021-05-12 06:59 | W.PM.OPSUD ---
Surgery/Procedure H&P Update DATE OF PROCEDURE: May 12, 2021 DATE H&P PERFORMED: 05/07/21 H&P UPDATE INFORMATION: I have reviewed H&P completed within last 30 days, I have examined patient prior to procedure and No changes to prior documentation PREOP DIAGNOSIS: uterine mass PLANNED PROCEDURE: Operation Date: 05/12/21 08:25 Proposed Procedures p Hysteroscopy w/ Myosure(Not Applicable) - Elvia Srinivasan MD s Dilation And Curettage (D&C)(Not Applicable) - Elvia Srinivasan MD
[2021-05-12 07:05] LABS: OR HCG Qualitative Urine Negative (Negative)
[2021-05-12] MEDS: sodium chloride 0.9% 1,000 ML 30 ML IV (07:20)
[2021-05-12] MEDS: ketorolac 30 mg/mL INJ IVP (07:20)
--- NOTE | 2021-05-12 07:20 | ANES.PREANE2 ---
Pre-Anesthetic Assessment Pre-Anesthetic Assessment: Height/Weight: Height 1.75 m Weight 104.326 kg Temp Pulse Resp BP Pulse Ox 98 F 80 17 125/69 96 05/12/21 06:52 05/12/21 06:52 05/12/21 06:52 05/12/21 06:52 05/12/21 06:52 Preop Diagnosis: uterine mass Proposed Procedure: Operation Date: 05/12/21 08:25 Proposed Procedures p Hysteroscopy w/ Myosure(Not Applicable) - Elvia Srinivasan MD s Dilation And Curettage (D&C)(Not Applicable) - Elvia Srinivasan MD Was Beta Kathy taken within 24 hours: N/A Was Clonidine taken within 24 hours: N/A Last intake: Intake Last Liquid Date 05/12/21 Last Liquid Time 03:00 Last Solid Date 05/11/21 Last Solid Time 22:00 Exam: Pre-Anes Outpt Exam: alert, oriented x 3, clear to auscultation bilaterally and regular rate & rhythm Airway: Submandibular: WNL Cervical ROM: WNL MP: 1 Dentition: Chipped History/ROS: No significant history except as noted Pulmonary: Pulmonary: None reported CV/HEM: CV/HEM: None reported : : None reported GI: GI: None reported Metabolic: Metabolic: None reported Musc/skel: Musc/skel: None reported Neuropsych: Neuropsych: None reported Anesthetic Plan: ASA status: 1 Anesthesia: Anesthesia Evaluation and General Risk of > 500 ml blood loss (7ml/kg in children): No PFSH Anesthesia PFSH: Medical History Anxiety and depression Chronic post-traumatic stress disorder (PTSD) Fibromyalgia No pertinent past medical history neghx: htn,dm,thyroid,dvt/pe,herpes -----denies partner with herpes Scoliosis Surgical History History of tonsillectomy and adenoidectomy (~2012) Hx of appendectomy (~2014) Family History Family/Other Breast cancer Maternal Aunt x2-- dx age unknown Father Diabetes Mother Hypertension Thyroid disease Grandmother Stroke Maternal and Paternal Grandfather Stroke Maternal Denies family history of Colon cancer Ovarian cancer Heart disease Uterine cancer Social History Additional social history: - Tobacco use: Never Alcohol use: occasionally prior to Drug use: Marijuana-- Medical Marijuana Card -- few times daily Female Reproductive History: Date of last menstrual period: 06/12/20 Data Anesthesia CBC & Chem 7: 05/12/21 07:10 05/12/21 07:10 Other Labs: Laboratory Results - last 48 hr 05/12/21 06:38 Urine HCG, Qual Negative Cardiac Studies: No Data to Display
[2021-05-12 07:22] LABS: Basophils # 0.1 10^3/uL (0.0-0.1); Basophils % 0.6 %; Eosinophils # 0.3 10^3/uL (0.0-0.8); Eosinophils % 2.6 %; Hemoglobin 13.6 g/dL (11.5-15.3); Lymphocytes # 4.2 10^3/uL (0.8-4.8); Lymphocytes % 39.5 %; Mean Corpuscular Hemoglobin 29.2 pg (28.0-34.0); Mean Corpuscular Volume 85.8 fl (81-99); Monocytes # 0.9 10^3/uL (0.2-0.9); Monocytes % 8.3 %; Neutrophils # 5.13 10^3/uL (1.8-7.7); Neutrophils % 48.7 %; Nucleated Red Blood Cells % 0 %; Platelet Count 286 10^3/cmm (130-400); Red Blood Count 4.66 10^6/uL (4.1-5.3); Red Cell Distribution Width 13.9 % (12.1-15.1); White Blood Count 10.5 10^3/uL (4.0-10.0)
[2021-05-12 09:15] LABS: Alanine Aminotransferase 40 U/L (0-33); Albumin Level 3.9 g/dL (3.5-5.2); Alkaline Phosphatase 62 IU/L (35-105); Aspartate Amino Transferase 24 U/L (0-32); Blood Urea Nitrogen 8 mg/dL (6-20); Calcium 8.6 mg/dL (8.5-10.5); Carbon Dioxide 25 mmol/L (22-29); Chloride 107 mmol/L (98-107); Globulin 2.5 g/dL (1.3-4.6); Glomerular Filtration Rate 155.7 mL/min (90-130); Glucose 83 mg/dL (65-115); Osmolality Calculated 289 mOsm/kg (285-295); Sodium 141 mmol/L (136-145); Total Bilirubin 0.2 mg/dL (0.15-1.2); Total Protein 6.4 g/dL (6.6-8.7)
[2021-05-12 09:26] LABS: Anion Gap 12.7 (5-19); Potassium 3.7 mmol/L (3.5-5.1)
--- NOTE | 2021-05-12 09:46 | PM.OP ---
Operative Report Date of procedure: May 12, 2021 Pre-op Diagnosis: uterine mass Post-op diagnosis: same Post-op Findings: excessive uterine tissue Procedure Done: Hysteroscopy, dilation and curettage with myosure Specimens removed/disposition: endometrial curettings to pathology Surgeon: Elvia Srinivasan Anesthesia: General Estimated blood loss (mL): 5 IV fluids (mL): 500 Complications: none Findings: 10 week sized uterus with excessive tissue Condition: stable Disposition: PACU Brief History: The patient is almost 8 weeks . she was concerned at her 6 week visit about constant abdominal pain. She was sent for an ultrasound which showed a uterine mass. She was scheduled for hysteroscopy, D&C to remove the mass Procedure: The patient was taken to the operating room where monitored anesthesia was administered and to be adequate. She was prepped and draped in the normal sterile fashion in the dorsal lithotomy position in Celestino stirps. A weighted speculum was placed into the vagina and the anterior lip of the cervix grasped with a single-tooth tenaculum. The uterus was sounded to 10 cm. The cervix was dilated to 13 [place]. The hysteroscope was advanced into the endometrial cavity. There was excessive tissue visualized. The MyoSure device was activated and the tissue was removed. Pictures were taken pre and post procedure. All instruments were removed. The patient tolerated the procedure well. Sponge lap and needle counts were correct x3. She was taken to the recovery room in stable condition.
--- NOTE | 2021-05-12 09:52 | PM.DCS ---
Discharge Providers Date of Discharge: May 12, 2021 Attending Provider at Discharge: Elvia Srinivasan MD Primary Care Provider: Torsten Paul Diagnoses at Discharge Discharge Diagnosis (1) Postoperative state: Status: Acute Reason for Visit Reason for Visit: Pelvic Pain and Endometrial mass Hospital Course Hospital Course The patient presented for surgery. She did well postoperatively and was ready for discharge. Discharge Data Data Completed and Pending: Pending at discharge Category Date Time Status ES surgery / GI i mages Routine Exams 05/12/21 09:00 Taken Urine Culture [facility] 05/12/21 06:41 Received Labs from last 24 hours 05/12/21 05/12/21 05/12/21 08:38 07:10 07:10 WBC 10.5 H RBC 4.66 Hgb 13.6 Hct 40.0 MCV 85.8 MCH 29.2 MCHC 34.0 RDW 13.9 Plt Count 286 MPV 12.0 H Neut % (Auto) 48.7 Lymph % (Auto) 39.5 [place] % (Auto) 8.3 Eos % (Auto) 2.6 Baso % (Auto) 0.6 Neut # (Auto) 5.13 Lymph # (Auto) 4.2 [place] # (Auto) 0.9 Eos # (Auto) 0.3 Baso # (Auto) 0.1 Nucleated RBC % (a uto) 0 Nucleated RBCs # 0.0 Sodium 141 Cancelled Potassium 3.7 Cancelled Chloride 107 Cancelled Carbon Dioxide 25 Cancelled Anion Gap 12.7 Cancelled BUN 8 Cancelled Creatinine 0.5 Cancelled GFR Calculation 155.7 H Cancelled Glucose 83 Cancelled Calculated Osmolal ity 289 Cancelled Calcium 8.6 Cancelled Total Bilirubin 0.2 Cancelled AST 24 Cancelled ALT 40 H Cancelled Alkaline Phosphata se 62 Cancelled Total Protein 6.4 L Cancelled Albumin 3.9 Cancelled Globulin 2.5 Cancelled Urine HCG, Qual 05/12/21 06:38 WBC RBC Hgb Hct MCV MCH MCHC RDW Plt Count MPV Neut % (Auto) Lymph % (Auto) [place] % (Auto) Eos % (Auto) Baso % (Auto) Neut # (Auto) Lymph # (Auto) [place] # (Auto) Eos # (Auto) Baso # (Auto) Nucleated RBC % (a uto) Nucleated RBCs # Sodium Potassium Chloride Carbon Dioxide Anion Gap BUN Creatinine GFR Calculation Glucose Calculated Osmolal ity Calcium Total Bilirubin AST ALT Alkaline Phosphata se Total Protein Albumin Globulin Urine HCG, Qual Negative Vitals: Last Vital Signs Temp 98 F 05/12/21 06:52 Pulse 80 05/12/21 06:52 Resp 17 05/12/21 06:52 BP 125/69 05/12/21 06:52 Pulse Ox 96 05/12/21 06:52 Discharge Plan Discharge Patient Disposition: Home Condition: Stable Prescriptions: Continued clarithromycin 500 mg tablet 500 mg PO BID Qty: 28 RF: 0 ibuprofen 800 mg tablet 800 mg PO TID PRN (Reason: pain) Qty: 60 RF: 0 acetaminophen 325 mg capsule 325 mg PO Q4H PRN (Reason: fever or pain) Qty: 60 RF: 0 Discharge Orders: Discharge Order (Routine); Ordered 05/12/21 Ordered By: Elvia Srinivasan Discharge Attestations Time Spent in Discharge Care*: less than 30 min Quality Metrics Clinical Quality Measures During this hospital stay, did patient experience: None Coding Level of Care Code Acute g FW DC note Diagnoses Postoperative state Z98.890
--- NOTE | 2021-05-12 09:56 | P.PCN_ITS ---
PACU note PACU note: VSS, Good respiratory effort, report to MEMBER SERVICE SPECIALIST Post-Anesthesia Exam: awake
--- NOTE | 2021-05-12 09:56 | PM.PACU ---
PACU note PACU note: VSS, Good respiratory effort, report to SPINNING FRAME TENDER Post-Anesthesia Exam: awake
--- NOTE | 2021-05-12 09:59 | PC.NURSE ---
Patient has circular bruise on right hip prior to procedure.
--- NOTE | 2021-05-12 11:05 | PC.NURSE ---
Dr. Srinivasan notified of patient's bleeding and clots that were present but that bleeding was significantly less now and not concerning; physician stated that it was most likely due to the extra fluid from procedure.
[2021-05-12] MEDS: ibuprofen 800 mg tablet PO (11:17)
== END 2021-05-12 11:32 | disposition home or self-care (01) ==
PROVIDERS: PCP Physician Assistant Medical; Visit Provider Obstetrics & Gynecology
PROC: 0UDB8ZZ Extraction of Endometrium, Via Natural or Artificial Opening Endoscopic (ICD-10-PCS; CPT 58558; principal; 2021-05-12 08:15)
PROC: (CPT 58120; 2021-05-12 08:15)
DX: N85.8 Other specified noninflammatory disorders of uterus (principal); R10.2 Pelvic and perineal pain
CPT/HCPCS: 58558; 80053; 84703; 85025; 87086; 88305; J0330; J0690; J1100; J1885; J2405; J2704; J3010; J3490; J7030

== ENCOUNTER → 2021-06-22 14:08 | Outpatient (BNVA) | payer MEDICAID, SELFPAY | PROVIDERS: PCP Physician Assistant Medical; Visit Provider Obstetrics & Gynecology | DX: N80.0 Endometriosis of uterus (principal) | CPT/HCPCS: 84702 ==

== ENCOUNTER 2021-06-26 11:04 | Outpatient (CLI) | payer MEDICAID, SELFPAY | END 2021-06-26 11:05 | disposition home or self-care (01) | PROVIDERS: PCP Physician Assistant Medical; Visit Provider Nurse Practitioner Women's Health | DX: Z78.9 Other specified health status (principal) | CPT/HCPCS: 84315; 84702 ==

== ENCOUNTER → 2021-07-16 12:57 | Outpatient (BNVA) | payer MEDICAID, SELFPAY | PROVIDERS: PCP Physician Assistant Medical; Visit Provider Obstetrics & Gynecology | DX: Z34.80 Encounter for supervision of other normal pregnancy, unspecified trimester (principal) | CPT/HCPCS: 80307; 84315; 84443; 85025; 86592; 86762; 86803; 86850; 86900; 87086; 87340; 87806 ==

== ENCOUNTER → 2021-08-24 12:56 | Outpatient (BNVA) | payer MEDICAID, SELFPAY | PROVIDERS: PCP Physician Assistant Medical; Visit Provider Obstetrics & Gynecology | DX: Z34.80 Encounter for supervision of other normal pregnancy, unspecified trimester (principal) | CPT/HCPCS: 84315; 87491; 87591; 87661; 88175 ==

== ENCOUNTER → 2021-11-26 14:27 | Outpatient (BNVA) | payer MEDICAID, SELFPAY | PROVIDERS: PCP Physician Assistant Medical; Visit Provider Obstetrics & Gynecology | DX: Z34.80 Encounter for supervision of other normal pregnancy, unspecified trimester (principal) | CPT/HCPCS: 82950; 84315; 84443; 85025; 86850 ==

== ENCOUNTER → 2021-12-10 14:11 | Outpatient (BNVA) | payer MEDICAID, SELFPAY | PROVIDERS: PCP Physician Assistant Medical; Visit Provider Obstetrics & Gynecology | DX: Z34.90 Encounter for supervision of normal pregnancy, unspecified, unspecified trimester (principal) | CPT/HCPCS: 84315; 87086 ==

== ENCOUNTER → 2022-01-21 13:56 | Outpatient (BNVA) | payer MEDICAID, SELFPAY | PROVIDERS: PCP Physician Assistant Medical; Visit Provider Obstetrics & Gynecology | DX: Z34.80 Encounter for supervision of other normal pregnancy, unspecified trimester (principal) | CPT/HCPCS: 84315; 87081 ==

== ENCOUNTER 2022-02-11 10:15 | Inpatient (IN) | payer MEDICAID, SELFPAY ==
[2022-02-11] VITALS (54 sets, daily range): BP systolic 102–137; BP diastolic 49–83; PULSE 61–137; RESP 16–18; TEMP 36.3–36.8; O2SAT 99–100; BMI 37.5
[2022-02-11 09:38] LABS: Nitrazine Paper, PH Negative
[2022-02-11 10:04] LABS: Actim Prom Positive
[2022-02-11 10:14] LABS: Urine Color Red (Yellow)
[2022-02-11 10:15] LABS: Add Urine Culture? Yes; Amphetamines Screen Urine Negative (Negative); Bacteria Urine TRACE /hpf; Barbiturates Screen Urine Negative (Negative); Benzodiazepines Screen Urine Negative (Negative); Bilirubin Urine Neg (Negative); Blood Urine 3+ (Negative); Cocaine Screen Urine Negative (Negative); Glucose Urine UA Norm (Normal); Ketones Urine Negative (Negative); Leukocyte Esterase Urine Negative (Negative); Mucus Urine TRACE /hpf; Nitrate Urine Negative (Negative); Opiate Screen Urine Negative (Negative); PCP Screen Urine Negative (Negative); Protein Urine Trace (Negative); RBC Urine TOO NUMEROUS TO CNT /hpf (0-2); THC Screen Urine Positive (Negative); Urine Appearance Cloudy (CLEAR); Urobilinogen Urine Norm (Negative); WBC Urine 0-4 /hpf (0-5); pH Urine 7 (5-7)
--- NOTE | 2022-02-11 10:15 | W.PM.OPSUD ---
Surgery/Procedure H&P Update DATE OF PROCEDURE: February 11, 2022 DATE H&P PERFORMED: 05/07/21 H&P UPDATE INFORMATION: I have reviewed H&P completed within last 30 days, I have examined patient prior to procedure and Changes to prior documentation as noted here (PROM) PREOP DIAGNOSIS: uterine mass
[2022-02-11] MEDS: lactated ringers 1,000 ML 999 ML IV ×2 (11:12→11:42)
[2022-02-11 11:17] LABS: Basophils # 0.1 10^3/uL (0.0-0.1); Basophils % 0.3 %; Eosinophils # 0.1 10^3/uL (0.0-0.8); Eosinophils % 0.9 %; Hematocrit 35.9 % (37.0-47.0); Hemoglobin 11.9 g/dL (11.5-15.3); Lymphocytes # 2.4 10^3/uL (0.8-4.8); Mean Corpuscular HGB Conc 33.1 g/dL (30.0-36.0); Mean Corpuscular Hemoglobin 29.2 pg (28.0-34.0); Mean Corpuscular Volume 88.2 fl (81-99); Mean Platelet Volume 11.6 fL (7.4-10.4); Monocytes # 0.9 10^3/uL (0.2-0.9); Monocytes % 6.1 %; Neutrophils # 11.48 10^3/uL (1.8-7.7); Neutrophils % 76.3 %; Nucleated Red Blood Cells % 0 %; Platelet Count 252 10^3/cmm (130-400); Red Blood Count 4.07 10^6/uL (4.1-5.3); Red Cell Distribution Width 14.3 % (12.1-15.1)
--- NOTE | 2022-02-11 12:19 | ANES.PREANE2 ---
Pre-Anesthetic Assessment Height/Weight: Height 1.75 m Weight 115.212 kg Temp Pulse Resp BP Pulse Ox 97.8 F 85 18 129/70 99 02/11/22 10:23 02/11/22 12:09 02/11/22 10:23 02/11/22 12:08 02/11/22 12:09 Preop Diagnosis: uterine mass Familial anesthetic complications: None Was Beta Kathy taken within 24 hours: N/A Was Clonidine taken within 24 hours: N/A Social No alcohol and No tobacco Exam alert, oriented x 3, clear to auscultation bilaterally and regular rate & rhythm Airway Submandibular: within normal limits Cervical ROM: within normal limits Mallampati: Class II Dentition: full Metabolic Morbid Obesity Neuropsych Anxiety and Depression Anesthetic Plan ASA status: 2 Anesthesia: Regional (specify below) (Labor epidural) Medications/Allergies Home Medications Medication Instructions Recorded Confirmed Last Taken Type acetaminophen 325 mg capsule 325 mg PO Q4H PRN #60 cap 03/21/21 02/01/22 05/05/21 Rx docosahexaenoic acid 200 mg 200 mg PO DAILY cap 07/16/21 02/01/22 Unknown History capsule ( DHA) ferrous sulfate 325 mg (65 mg 325 mg PO DAILY 02/11/22 02/11/22 02/11/22 08:20 History iron) tablet (iron) [id number] 1 mg tab PO 02/11/22 Unknown History tablet Allergies Allergy/AdvReac Type Severity Reaction Status Date / Time nicotine Allergy lethargic Verified 02/01/22 10:23 and can cause respiratory distress Current Medications Generic Name Dose Route Start Last Admin Trade Name Trace PRN Reason Stop Dose Admin Lactated Ringer's 1,000 mls @ 999 mls/hr 02/11/22 10:38 02/11/22 11:12 Lactated Ringers IV 999 mls/hr .Q1H1M PRN Administration Per L&D Rescitation Protocol Ropivacaine 200 mg in 100 mls @ 6 mls/hr 02/11/22 10:45 02/11/22 11:12 Naropin Premix EPIDURAL 6 mls/hr .[id number] KEVIN Administration Lactated Ringer's 1,000 mls @ 999 mls/hr 02/11/22 11:13 02/11/22 11:42 Lactated Ringers IV 999 mls/hr .Q1H1M PRN Administration See label comments PFSH Anesthesia Medical History Anxiety and depression Chronic post-traumatic stress disorder (PTSD) Fibromyalgia No pertinent past medical history neghx: htn,dm,thyroid,dvt/pe,herpes -----denies partner with herpes Scoliosis Surgical History History of hysteroscopy (~04/2021) with D&C-- uterine mass; pathology no atypia. Adenomyosis. Performed by Zarina. History of tonsillectomy and adenoidectomy (~2012) Hx of appendectomy (~2014) Family History Family/Other Breast cancer Maternal Aunt x2-- dx age unknown Father Diabetes Mother Hypertension Thyroid disease Grandmother Stroke Maternal and Paternal Grandfather Stroke Maternal Denies family history of Colon cancer Ovarian cancer Heart disease Uterine cancer Social History Additional social history: - Female Reproductive History Date of last menstrual period: 06/12/20 : 4 Data Anesthesia : 02/11/22 10:30 Short CBC 02/11/22 Range/Units 10:30 WBC 15.0 H (4.0-10.0) 10^3/uL Hgb 11.9 (11.5-15.3) g/dL Hct 35.9 L (37.0-47.0) % MCV 88.2 (81-99) fl Plt Count 252 (130-400) 10^3/cmm Neut % (Auto) 76.3 % Neut # (Auto) 11.48 H (1.8-7.7) 10^3/uL Urine 02/11/22 Range/Units 09:30 Urine Color Red (Yellow) Urine Appearance Cloudy (CLEAR) Urine pH 7 (5-7) Ur Specific [place] 1.010 (1.005-1.030) Urine Protein Trace (Negative) Urine Glucose (UA) Norm (Normal) Urine Ketones Negative (Negative) Urine Nitrate Negative (Negative) Urine Bilirubin Neg (Negative) Ur Leukocyte Esterase Negative (Negative) Urine RBC Too numerous to cnt H (0-2) /hpf Urine WBC 0-4 H (0-5) /hpf Cardiac Studies: No Data to Display Anesthesia Procedures Epidural Time Out Performed: Yes Consents Signed: Procedure Consent Consent: requested by attending/covering physician, from patient, risks and benefits reviewed and patient agrees to proceed Lumbar Level: L3-L4 Epidural position: sitting Epidural procedure: sterile prep of area, 1% lidocaine to numb the area, 18 g needle, neg for paresthesia, test dose given, 1.5% xylocaine 1:200k epi, placed PCEA, no systemic response, sterile dressing applied and 0.2% Ropiavacaine @ mls/hr (13) Additional Comments: SHIVAM at 6cm cath at 11cm bolused 5mls of 2% lido PF
[2022-02-11] MEDS: dextrose 5%-lactated ringers 1,000 ML 125 ML IV (12:44)
--- NOTE | 2022-02-11 16:18 | PM.DELIVERY ---
Delivery Note: Date of delivery: February 11, 2022 Pre-delivery diagnoses: Term . Premature rupture of membranes. Post-delivery diagnoses: delivered Procedure: Continuous vaginal delivery Estimated blood loss (mL): 200 Pre-Delivery Course: Ms. Antonio is a 21 year old G4 P 1021 with an LMP of 05/11/21 and ELIU 02/15/2022 which places her at 39-0/7who has been receiving care from [facility]. She went to labor and delivery complaining of possible rupture of membranes. Active problems confirms PROM HPI: She Received appropriate care. Daily vitamins since start of care. labs have all been normal, including negative for HIV. Blood type is O-. She was found to negative for Group B Strep from screening at 36 weeks. She has gained approximately 10 lbs throughout the . She denies a history of HTN during . Glucose tolerance screening for gestational diabetes was negative. Delivery: The patient was noted to be complete and pushing, so was placed in the dorsal lithotomy position, prepped and draped in the usual sterile fashion for a vaginal delivery. Pt. Noted to have epidural anesthesia. At 1605 the patient delivered a viable 39 weeks male weighing 3170g with scores of 8 and 9 at one and five minutes, respectively. The vertex was delivered spontaneously over intact Perineum. The patient was asked to push and the head delivered spontaneously in the DAVID position, over an intact perineum. A nuchal cord was checked and twice around the neck noted, anddelivered through around head as necessary. The anterior shoulder delivered easily and the posterior shoulder followed. The remainder of the infant was easily delivered and the oropharynx and nasopharynx was bulb suctioned. The infant was noted to have spontaneous cry and spontaneous movement of all four extremities. The cord was clamped x 2 and cut and noted to have 2 arteries and one vein. The infant was passed to the mother's abdomen where nursing personnel were in attendance. Cord blood sample was then obtained. The placenta delivered intact spontaneously and the uterus was explored. 20 units of Pitocin was placed in the IV bag to firm the uterus. Examination of the cervix and vaginal vault did not reveal any lacerations. A vaginal pack was then placed. Examination of the perineum showed no laceration. The vaginal pack was then removed. The patient tolerated this procedure well, and recovered in L&D with her in their LDR room. All sponge and needle counts were correct. Post-Delivery Status: Good and stable History History History 4 Term 1 Miscarriages/Ectopic 2 0 Living Children 1 A&P Assessment and plan (1) Term delivered: Status: Acute (2) Premature rupture of membranes: Status: Acute Coding Level of Care Code Acute Retail Security Professional for Chg Fwd Diagnoses Term delivered O80 Premature rupture of membranes O42.90
[2022-02-11] MEDS: ibuprofen 800 mg tablet PO (21:21)
[2022-02-12] VITALS: BP 114/74; PULSE 66; RESP 15; O2SAT 96
[2022-02-12] MEDS: HYDROcodone-acetaminophen 5-325 mg Tablet PO ×2 (00:58→12:11)
[2022-02-12 02:01] VITALS: BP 129/69; PULSE 90; RESP 15; O2SAT 98
[2022-02-12 04:41] LABS: Hematocrit 34.8 % (37.0-47.0); Hemoglobin 11.3 g/dL (11.5-15.3); Mean Corpuscular HGB Conc 32.5 g/dL (30.0-36.0); Mean Corpuscular Hemoglobin 29.4 pg (28.0-34.0); Mean Corpuscular Volume 90.6 fl (81-99); Mean Platelet Volume 11.4 fL (7.4-10.4); Platelet Count 218 10^3/cmm (130-400); Red Blood Count 3.84 10^6/uL (4.1-5.3); Red Cell Distribution Width 14.6 % (12.1-15.1); White Blood Count 15.1 10^3/uL (4.0-10.0)
[2022-02-12] MEDS: prenatal vitamin Capsule 1 CAP PO (08:40)
[2022-02-12] MEDS: ibuprofen 800 mg tablet PO ×2 (08:40→15:34)
[2022-02-12] MEDS: docusate sodium 100 mg Capsule PO (08:41)
[2022-02-12 10:00] VITALS: BP 112/82; PULSE 77; RESP 18; O2SAT 98
--- NOTE | 2022-02-12 11:04 | ANE.PACU2 ---
Inpatient post-anesthesia follow up: Airway intact: Yes Vital signs: Temperature 98.1 F Pulse Rate 90 Respiratory Rate 15 Blood Pressure 129/69 Pulse Oximetry 98 Oxygen Delivery Me thod Room Air Oxygen Flow Rate Fraction of Inspir ed Oxygen Hydration adequate: Yes Nausea and vomiting: No Pain level: 2 Mental status: Baseline
--- NOTE | 2022-02-12 17:14 | PM.OBGYDC ---
Discharge Providers MANAGER GLOBAL COMMUNICATIONS Date of Admission: 02/11/22 10:15 Date of Discharge: 02/12/22 Attending Provider at Admission: River Sewell MD Attending Provider at Discharge: River Sewell MD Primary Care Provider: Torsten Paul Diagnoses at Discharge Discharge Diagnosis (1) Term delivered: Status: Acute (2) Premature rupture of membranes: Status: Acute Reason for Visit Reason for Visit: CONTRACTIONS Hospital Course Hospital Course Ms. Antonio is a 21 year old G4 P 1021 with an estimated gestational age at 39 weeks admitted to labor and delivery with premature rupture of membranes. She progressed to have a spontaneous vaginal delivery without complications. observation has been uneventful. She is day 1. Afebrile and hemodynamically stable. Tolerating diet well. Ambulating without difficulty. normal lochia. Counseled regarding breast-feeding. Elected to use oral contraceptive pills when she comes back for the 6-week visit. Information Peripartum Data: Infant Delivery Method: Vaginal Physical Exam Narrative: GA; alert and oriented x 3 HEENT: normal Breasts: engorged Nipples - skin intact Lungs; clear to auscultation Heart: regular rhythm, no murmurs. Abd: Appropriately tender. BS+. Uterine fundus below umbilicus. No Fundal Tenderness. Perineum: normal lochia. Extremities: no edema, no cyanosis, no tenderness. Urinary Catheter Management: Lopes: Cath Placed During This Visit: yes, but has since been removed by the nurse Reason for Continuing Indwelling Catheter: Other Urinary Catheter Date of Insertion: 02/11/22 Urinary Catheter Time of Insertion: 12:10 Date Urinary Catheter Removed: 02/11/22 Time Urinary Catheter Discontinued: 15:55 History History History 4 Term 1 Miscarriages/Ectopic 2 0 Living Children 1 Discharge Data Studies Completed and Pending Pending at discharge Category Date Time Status Antibody Identification Routine Lab 02/11/22 10:30 Results Complete Crossmatch Routine Lab 02/12/22 04:00 Results Rhogam [Rho D Immune Globulin] Routine Lab 02/11/22 10:30 Results Type and Screen Routine Lab 02/12/22 04:00 Results Urine Culture Stat Lab 02/11/22 09:30 Results Laboratory Results WBC 15.1 10^3/uL (4.0-10.0) H 02/12/22 04:35 RBC 3.84 10^6/uL (4.1-5.3) L 02/12/22 04:35 Hgb 11.3 g/dL (11.5-15.3) L 02/12/22 04:35 Hct 34.8 % (37.0-47.0) L 02/12/22 04:35 MCV 90.6 fl (81-99) 02/12/22 04:35 MCH 29.4 pg (28.0-34.0) 02/12/22 04:35 MCHC 32.5 g/dL (30.0-36.0) 02/12/22 04:35 RDW 14.6 % (12.1-15.1) 02/12/22 04:35 Plt Count 218 10^3/cmm (130-400) 02/12/22 04:35 MPV 11.4 fL (7.4-10.4) H 02/12/22 04:35 Neut % (Auto) 76.3 % 02/11/22 10:30 Lymph % (Auto) 16.0 % 02/11/22 10:30 [place] % (Auto) 6.1 % 02/11/22 10:30 Eos % (Auto) 0.9 % 02/11/22 10:30 Baso % (Auto) 0.3 % 02/11/22 10:30 Neut # (Auto) 11.48 10^3/uL (1.8-7.7) H 02/11/22 10:30 Lymph # (Auto) 2.4 10^3/uL (0.8-4.8) 02/11/22 10:30 [place] # (Auto) 0.9 10^3/uL (0.2-0.9) 02/11/22 10:30 Eos # (Auto) 0.1 10^3/uL (0.0-0.8) 02/11/22 10:30 Baso # (Auto) 0.1 10^3/uL (0.0-0.1) 02/11/22 10:30 Nucleated RBC % (auto) 0 % 02/11/22 10:30 Nucleated RBCs # 0.0 /100WBC 02/11/22 10:30 Insulin-like GF I Positive 02/11/22 09:35 Urine Color Red (Yellow) 02/11/22 09:30 Urine Appearance Cloudy (CLEAR) 02/11/22 09:30 Urine pH 7 (5-7) 02/11/22 09:30 Ur Specific [place] 1.010 (1.005-1.030) 02/11/22 09:30 Urine Protein Trace (Negative) 02/11/22 09:30 Urine Glucose (UA) Norm (Normal) 02/11/22 09:30 Urine Ketones Negative (Negative) 02/11/22 09:30 Urine Blood 3+ (Negative) H 02/11/22 09:30 Urine Nitrate Negative (Negative) 02/11/22 09:30 Urine Bilirubin Neg (Negative) 02/11/22 09:30 Urine Urobilinogen Norm mg/dL (Negative) 02/11/22 09:30 Ur Leukocyte Esterase Negative (Negative) 02/11/22 09:30 Urine RBC Too numerous to cnt /hpf (0-2) H 02/11/22 09:30 Urine WBC 0-4 /hpf (0-5) H 02/11/22 09:30 Ur Squamous Epith Cells 5-10 /hpf (0-5) H 02/11/22 09:30 Amorphous Sediment Not Reportable 02/11/22 09:30 Urine Bacteria Trace /hpf (NONE) 02/11/22 09:30 Urine Mucus Trace /hpf 02/11/22 09:30 Urine Opiates Screen Negative ng/mL (Negative) 02/11/22 09:30 Ur Barbiturates Screen Negative ng/mL (Negative) 02/11/22 09:30 Ur Phencyclidine Scrn Negative ng/mL (Negative) 02/11/22 09:30 Ur Amphetamines Screen Negative ng/mL (Negative) 02/11/22 09:30 U Benzodiazepines Scrn Negative ng/mL (Negative) 02/11/22 09:30 Urine Cocaine Screen Negative ng/mL (Negative) 02/11/22 09:30 U Marijuana (THC) Screen Positive ng/mL (Negative) H 02/11/22 09:30 Blood Type O Negative 02/11/22 10:30 Rho(D) Type Negative 02/11/22 10:30 Antibody Screen Positive 02/11/22 10:30 Antibody Identification Anti-D 02/11/22 10:30 Screen Negative (Negative) 02/12/22 04:35 Vitals Last Vital Signs Temp 98.1 F 02/11/22 16:25 Pulse 77 02/12/22 10:00 Resp 18 02/12/22 10:00 BP 112/82 02/12/22 10:00 Pulse Ox 98 02/12/22 10:00 Discharge Plan Discharge Patient Disposition: Home Condition: Stable Prescriptions: New ibuprofen 800 mg tablet 800 mg PO TID PRN (Reason: pain) Qty: 60 0RF Colace 100 mg capsule 100 mg PO BID Qty: 60 0RF acetaminophen 325 mg capsule 325 mg PO Q4H PRN (Reason: fever or pain) Qty: 60 0RF Continued DHA 200 mg capsule 200 mg PO DAILY 0RF acetaminophen 325 mg capsule 325 mg PO Q4H PRN (Reason: fever or pain) Qty: 60 0RF iron 325 mg (65 mg iron) Tablet 325 mg PO DAILY 0RF [id number] 1 mg Tablet PO 0RF Discharge Orders: Discharge Order (Routine); Ordered 02/12/22 Ordered By: River Sewell Referrals: River Sewell MD [Physician] - 6 Weeks Discharge Diet: Usual diet Discharge Activity: Limit activity as instructed Patient Instructions: Depression (DC), Bleeding (DC), Preeclampsia and Eclampsia After Delivery (GEN), OB Discharge Report, OB Food/Drug Interaction Guide, OB Care at Home, Opioid Safety, OB Home Care, OB Vaginal Deliveries - [facility], Abnormal Bleeding Activity Restrictions/Additional Instructions: 1. Please call [facility] clinic on next working day to make your post appointment in 6 weeks. 2. Please stay home until you come back to the clinic on first post-operative check up. 3. Please follow instructions on your medications CAREFULLY. 4. If you have abdominal incision, do not cover it unless dressing is necessary because of drainage. OK to shower, but avoid bath. Leave steri-strips until they fall off. If they are still on one week after surgery, you may remove them. 5. If you had vaginal surgery or vaginal repair, Dr. Sewell may instruct you to take SITZ bath. 6. Yellow, blood tinged odorous vaginal discharge is usually normal after hysterectomy or vaginal surgeries. 7. No sexual intercourse, tampons, or douches until you are completely released from the post-operative care. 8. Avoid constipation by eating right and maybe using some Metamucil or Milk of Magnesia. 9. All prescription refills are given during the working hours. Please do no wait till it runs out. Call the clinic at [phone] before your medication runs out. The clinic will get in touch with your doctor to prescribe medications if necessary. 10. Please remain within 40 mile radius from our hospital because emergencies do happen now and then during the post-operative period. 11. If you have stairs at home, take one step at a time slowly and minimize the number of trips. It helps to stay in one floor for the next few days. No lifting except what you can lift by one hand until you are released from the post-operative care. 12. Driving is discouraged until you are well healed. It may be 3-4 weeks before you feel strong enough to drive. You should be able to turn and look through the rear window without pain and you should be able to push the brake pedal very hard without pain before you drive. No fast rules, but SAFETY should be your primary concern. DO NOT drive if you are on sedating medications such as narcotics. 13. Call the clinic (during working hours) to make urgent appointment or go to the Emergency room, if any of the following occurs: i. Vaginal bleeding becomes heavy, more than a period. ii. Incision becomes red and sore, or drains pus. iii. Your temperature is over 100.4 or you have chill. iv. IV site becomes red and swollen (a little ``knot?? is usually OK) v. Persistent nausea and vomiting vi. Persistent constipation or diarrhea vii. Rash or allergic reaction to medications. Discharge Attestations MANAGER GLOBAL COMMUNICATIONS Time Spent in Discharge Care*: greater than 30 min Coding Level of Care Code Acute Safety Officer for Chg Fwd Diagnoses Term delivered O80 Premature rupture of membranes O42.90
[2022-02-12 17:40] VITALS: BP 120/87; PULSE 87; RESP 15; TEMP 36.7
[2022-02-12 18:18] VITALS: BP 116/78; PULSE 72; RESP 16; TEMP 36.5
== END 2022-02-12 18:16 | disposition home or self-care (01) | DRG 806 ==
LOC: OPOB 10:18 → OBGYN 10:18
PROVIDERS: Absent Provider Obstetrics & Gynecology; Admitting Provider Obstetrics & Gynecology; PCP Physician Assistant Medical; Visit Provider Obstetrics & Gynecology
DX: O42.92 Full-term premature rupture of membranes, unspecified as to length of time between rupture and onset of labor (principal); O99.324 Drug use complicating childbirth; Z37.0 Single live birth; O99.344 Other mental disorders complicating childbirth; F12.90 Cannabis use, unspecified, uncomplicated; O69.2XX0 Labor and delivery complicated by other cord entanglement, with compression, not applicable or unspecified; Z3A.39 39 weeks gestation of pregnancy; F41.8 Other specified anxiety disorders; F43.10 Post-traumatic stress disorder, unspecified; M79.7 Fibromyalgia; M41.9 Scoliosis, unspecified; O75.89 Other specified complications of labor and delivery
CPT/HCPCS: 36415; 36430; 51702; 59025; 59409; 80306; 80503; 81001; 83986; 84112; 85025; 85027; 85460; 86850; 86870; 86900; 87086; 90384; 99211; J2795

== ENCOUNTER 2023-08-09 04:33 | Emergency (ER) | payer MEDICAID, SELFPAY ==
--- NOTE | 2023-08-09 | CTR_ITS ---
PROCEDURE INFORMATION: Exam: CT Abdomen And Pelvis With Contrast Exam date and time: 08/09/2023 5:38 AM Age: 22 years old Clinical indication: Abdominal pain; Other: Lower TECHNIQUE: Imaging protocol: Computed tomography of the abdomen and pelvis with contrast. Radiation optimization: All CT scans at this facility use at least one of these dose optimization techniques: automated exposure control; mA and/or kV adjustment per patient size (includes targeted exams where dose is matched to clinical indication); or iterative reconstruction. Contrast material: OMNI 350; Contrast volume: 100 ml; Contrast route: INTRAVENOUS (IV); REPORTING DATA: Count of CT and Cardiac NM exams in prior 12 months: This patient has received 0 known CTs and 0 known cardiac nuclear medicine studies in the 12 months prior to the current study. COMPARISON: No relevant prior studies available. RADIATION DOSE METRICS: Total DLP (mGy-cm): 1040.57 FINDINGS: Liver: Normal. No mass. Gallbladder and bile ducts: Normal. No calcified stones. No ductal dilation. Pancreas: Normal. No ductal dilation. Spleen: Normal. No splenomegaly. Adrenal glands: Normal. No mass. Kidneys and ureters: Normal. No hydronephrosis. Stomach and bowel: Unremarkable. No obstruction. No mucosal thickening. Appendix: Appendectomy. Intraperitoneal space: Minimal free fluid within the cul-de-sac. Vasculature: Unremarkable. No abdominal aortic aneurysm. Lymph nodes: Unremarkable. No enlarged lymph nodes. Urinary bladder: Unremarkable as visualized. Reproductive: The IUD is in appropriate location. Bones/joints: Unremarkable. No acute fracture. Soft tissues: Unremarkable. CT/CT abdomen pelvis w con* [id number] IMPRESSION: No acute subdiaphragmatic pathology.
[2023-08-09 10:02] LABS: Alanine Aminotransferase 16 U/L (0-33); Albumin Level 3.8 g/dL (3.5-5.2); Alkaline Phosphatase 74 U/L (35-105); Anion Gap 12.5 (5-19); Aspartate Amino Transferase 20 U/L (0-32); Blood Urea Nitrogen 13 mg/dL (6-20); Calcium 8.9 mg/dL (8.5-10.5); Carbon Dioxide 25 mmol/L (22-29); Chloride 107 mmol/L (98-107); Globulin 2.4 g/dL (1.3-4.6); Glomerular Filtration Rate 103.7 mL/min (90-130); Glucose 99 mg/dL (65-115); Lipase 15 U/L (13-60); Osmolality Calculated 290 mOsm/kg (285-295); Potassium 4.5 mmol/L (3.5-5.1); Sodium 140 mmol/L (136-145); Total Bilirubin 0.2 mg/dL (0.15-1.2); Total Protein 6.2 g/dL (6.6-8.7); Urine Appearance Hazy (CLEAR); Urine Color Light yellow (Yellow)
[2023-08-09 10:03] LABS: Add Urine Microscopic? YES; Bilirubin Urine Neg (Negative); Blood Urine Neg (Negative); Glucose Urine UA Norm (Normal); Ketones Urine Negative (Negative); Leukocyte Esterase Urine 1+ (Negative); Nitrate Urine Negative (Negative); Protein Urine Neg (Negative); Urobilinogen Urine Norm (Negative); pH Urine 6 (5-7)
[2023-08-09 10:04] LABS: Add Urine Culture? No; Bacteria Urine 1+ /hpf; Basophils # 0.1 10^3/uL (0.0-0.1); Basophils % 0.6 %; Eosinophils # 0.3 10^3/uL (0.0-0.8); Eosinophils % 2.7 %; Hematocrit 42.2 % (36-47); Lymphocytes # 4.5 10^3/uL (0.8-4.8); Mean Corpuscular Hemoglobin 29.4 pg (27-33); Mean Corpuscular Volume 91.9 fl (85-98); Mean Platelet Volume 12.9 fL (7.4-10.4); Monocytes # 0.7 10^3/uL (0.2-0.9); Monocytes % 7.2 %; Neutrophils # 4.62 10^3/uL (1.8-7.7); Neutrophils % 45.2 %; Nucleated Red Blood Cells % 0 %; Platelet Count 265 10^3/cmm (157-399); Red Blood Count 4.59 10^6/uL (3.85-5.65); White Blood Count 10.23 10^3/uL (3.29-11.43)
--- NOTE | 2023-08-09 17:54 | ED_ITS ---
Documented by User: Geovanni Syed MD 08/09/23 17:57 HPI - Abdominal Pain 2 General: Stated Complaint: IUD issues Time Seen by Provider: 08/09/23 09:16 Source: patient Mode of arrival: ambulatory Limitations: no limitations History of Present Illness: 22-year-old female states been having lo wer abdominal pain over the last 2 days. States that sharp and suprapubic in nature in her left lower quadrant. She had a history of appendectomy she also has an IUD states she feels like her IUD may be out of place. Denies any fever denies any vomiting denies any diarrhea. Associated Symptoms: Denies chills, diarrhea, fever(s), nausea and vomiting Review of Systems 2 Const: Denies: fever(s), chills, body aches or change in appetite Eyes: Denies: blurry vision or eye discomfort ENMT: Denies: throat pain or dental pain Card: Denies: chest pain Resp: Denies: dyspnea GI: Reports: abdominal pain; Denies: nausea, vomiting or diarrhea Musc: Denies: neck pain or back pain Skin/Breast: Denies: rash Neuro: Denies: headache(s) PFSH ED 2 PFSH: Medical History Psychiatric care Chronic post-traumatic stress disorder (PTSD) Anxiety and depression No pertinent past medical history neghx: htn,dm,thyroid,dvt/pe,herpes -----denies partner with herpes Scoliosis Fibromyalgia Surgical History History of hysteroscopy (~04/2021) with D&C-- uterine mass; pathology no atypia. Adenomyosis. Performed by [facility]. Hx of appendectomy (~2014) History of tonsillectomy and adenoidectomy (~2012) Family History Family/Other Breast cancer Maternal Aunt x2-- dx age unknown Father Diabetes Mother Hypertension Thyroid disease Grandmother Stroke Maternal and Paternal Grandfather Stroke Maternal Denies family history of Colon cancer Ovarian cancer Heart disease Uterine cancer Social History Smoking and tobacco/nicotine status: never used tobacco/nicotine Second hand smoke exposure: Yes (brother smokes outside) Alcohol intake: current Alcohol intake frequency: holidays/special occasions only Alcohol type: beer, wine and hard liquor Substance/Drug Use: current Substance/Drug use frequency: daily Other substance/drug use details: Medical card Additional social history: - Adopted: No Caregiver/support person: No Lives independently: Yes Household members: family Housing: House Marital status: Single Number of children: 2 Number of grandchildren: 0 Highest education level completed: GED or Equivalent service: No Current occupational status: unemployed Pets and animals: Yes Pets & animals: cat(s) Leisure activites: art, music and other Leisure activities details: play with her children Sexually active: No Do you think of yourself as: Bisexual Current gender identity: Female Maday/Denominational: Mormon Special maday needs: No Agree to transfusion: Yes (05.24.23) Female Reproductive History: Para: 2 Spontaneous abortions: Yes (X2) Physical Exam 2 Const: COMMON NORMALS: no acute distress, patient oriented x3 and healthy appearing HENMT: COMMON NORMALS: normocephalic and atraumatic HEAD & SCALP: n ormocephalic and atraumatic Eye: COMMON NORMALS: Equal, round and reactive pupils present and EOMs intact bilaterally PUPIL: Yes Equal, round and reactive pupils present Neck/C-Spine: COMMON NORMALS: full ROM and supple Chest: COMMONS NORMALS: normal inspection of the chest and normal palpation of entire chest wall Resp: COMMON NORMALS: normal respiratory effort, No retractions, No use of accessory muscles and clear to auscultation bilaterally AUSCULTATION: clear to auscultation bilaterally Cardio: COMMON NORMALS: regular rate, regular rhythm and No murmurs present (Cardio) RATE: regular rate RHYTHM: regular rhythm GI: COMMON NORMALS: Normal to inspection, nondistended, normoactive bowel sounds present, Soft to palpation and no masses PALPATION: Yes Soft to palpation and Yes Tenderness to palpation present (GI) Details: LLQ Extremity: COMMON NORMALS: normal to inspection and full ROM Neuro: COMMON NORMALS: patient oriented x3, moves all extremities and no focal motor deficits Psych: COMMON NORMALS: mental status grossly normal, Normal thought process present and cooperative THOUGHT PROCESS: Normal thought process present Skin: COMMON NORMALS: no rashes or lesions noted and no wounds GENERAL SKIN EXAM: no rashes or lesions noted MDM - Abdominal Pain Medical Decision Making Patient's presents here with abdominal pain she is pending CT of her abdomen all of blood work patient's care turned over to Dr. Goodrich pending results Medical Records I reviewed the patient's medical records. Lab Data I reviewed the patient's lab results. 08/09/23 04:58 08/09/23 04:58 Labs/Radiology: Radiology Impressions Abdomen/Pelvis CT 08/09/23 00:00 IMPRESSION: No acute subdiaphragmatic pathology. Laboratory Results WBC 10.23 10^3/uL (3.29-11.43) 08/09/23 04:58 RBC 4.59 10^6/uL (3.85-5.65) 08/09/23 04:58 Hgb 13.50 g/dL (11.27-16.99) 08/09/23 04:58 Hct 42.2 % (36-47) 08/09/23 04:58 MCV 91.9 fl (85-98) 08/09/23 04:58 MCH 29.4 pg (27-33) 08/09/23 04:58 MCHC 32.0 g/dL (30-55) 08/09/23 04:58 RDW 13.0 % (12.1-15.1) 08/09/23 04:58 Plt Count 265 10^3/cmm (157-399) 08/09/23 04:58 MPV 12.9 fL (7.4-10.4) H 08/09/23 04:58 Neut % (Auto) 45.2 % 08/09/23 04:58 Lymph % (Auto) 44.0 % 08/09/23 04:58 [place] % (Auto) 7.2 % 08/09/23 04:58 Eos % (Auto) 2.7 % 08/09/23 04:58 Baso % (Auto) 0.6 % 08/09/23 04:58 Neut # (Auto) 4.62 10^3/uL (1.8-7.7) 08/09/23 04:58 Lymph # (Auto) 4.5 10^3/uL (0.8-4.8) 08/09/23 04:58 [place] # (Auto) 0.7 10^3/uL (0.2-0.9) 08/09/23 04:58 Eos # (Auto) 0.3 10^3/uL (0.0-0.8) 08/09/23 04:58 Baso # (Auto) 0.1 10^3/uL (0.0-0.1) 08/09/23 04:58 Nucleated RBC % (auto) 0 % 08/09/23 04:58 Nucleated RBCs # 0.0 /100WBC 08/09/23 04:58 Sodium 140 mmol/L (136-145) 08/09/23 04:58 Potassium 4.5 mmol/L (3.5-5.1) 08/09/23 04:58 Chloride 107 mmol/L (98-107) 08/09/23 04:58 Carbon Dioxide 25 mmol/L (22-29) 08/09/23 04:58 Anion Gap 12.5 (5-19) 08/09/23 04:58 BUN 13 mg/dL (6-20) 08/09/23 04:58 Creatinine 0.7 mg/dL (0.5-0.9) 08/09/23 04:58 GFR Calculation 103.7 mL/min (90-130) 08/09/23 04:58 Glucose 99 mg/dL (65-115) 08/09/23 04:58 Calculated Osmolality 290 mOsm/kg (285-295) 08/09/23 04:58 Calcium 8.9 mg/dL (8.5-10.5) 08/09/23 04:58 Total Bilirubin 0.2 mg/dL (0.15-1.2) 08/09/23 04:58 AST 20 U/L (0-32) 08/09/23 04:58 ALT 16 U/L (0-33) 08/09/23 04:58 Alkaline Phosphatase 74 U/L (35-105) 08/09/23 04:58 Total Protein 6.2 g/dL (6.6-8.7) L 08/09/23 04:58 Albumin 3.8 g/dL (3.5-5.2) 08/09/23 04:58 Globulin 2.4 g/dL (1.3-4.6) 08/09/23 04:58 Lipase 15 U/L (13-60) 08/09/23 04:58 HCG, Qual Negative (Negative) 08/09/23 04:58 Urine Color Light yellow (Yellow) 08/09/23 04:58 Urine Appearance Hazy (CLEAR) A 08/09/23 04:58 Urine pH 6 (5-7) 08/09/23 04:58 Ur Specific [place] 1.020 (1.005-1.030) 08/09/23 04:58 Urine Protein Neg (Negative) 08/09/23 04:58 Urine Glucose (UA) Norm (Normal) 08/09/23 04:58 Urine Ketones Negative (Negative) 08/09/23 04:58 Urine Blood Neg (Negative) 08/09/23 04:58 Urine Nitrate Negative (Negative) 08/09/23 04:58 Urine Bilirubin Neg (Negative) 08/09/23 04:58 Urine Urobilinogen Norm mg/dL (Negative) 08/09/23 04:58 Ur Leukocyte Esterase 1+ (Negative) H 08/09/23 04:58 Urine RBC None /hpf (0-2) 08/09/23 04:58 Urine WBC 5-10 /hpf (0-5) H 08/09/23 04:58 Ur Squamous Epith Cells 10-15 /hpf (0-5) H 08/09/23 04:58 Amorphous Sediment Not Reportable 08/09/23 04:58 Urine Bacteria 1+ /hpf (NONE) H 08/09/23 04:58 All radiology interpretation(s) finalized by discharge Discharge Plan Discharge Patient Disposition: Home Clinical Impression: Abdominal pain Qualifiers: Abdominal location: generalized Qualified Code(s): R10.84 - Generalized abdominal pain Prescriptions: No Action Mirena 20 mcg/24 hours (7 yrs) 52 mg intrauterine device intrauterine trazodone 50 mg tablet 100 mg PO .HS PRN (Reason: insomnia) Qty: 60 1RF duloxetine [Cymbalta] 20 mg capsule,delayed release(DR/EC) 20 mg PO DAILY Qty: 30 1RF acetaminophen 325 mg capsule 325 mg PO Q4H PRN (Reason: fever or pain) Qty: 60 0RF Discharge Orders: Discharge ED (Routine); Ordered 08/09/23 Ordered By: Geovanni Syed Referrals: Torsten Paul [Primary Care Provider] - Patient Instructions: Abdominal Pain (ED), Opioid Safety, Pain Management Coding Level of Care Code ED Nurse Recruiter for Chg Fwd Documented by User: Srinivas Dominguez DO 08/16/23 07:26 HPI - Abdominal Pain 2 General: Stated Complaint: IUD issues Time Seen by Provider: 08/09/23 09:16 PFSH ED 2 PFSH: Medical History Psychiatric care Chronic post-traumatic stress disorder (PTSD) Anxiety and depression No pertinent past medical history neghx: htn,dm,thyroid,dvt/pe,herpes -----denies partner with herpes Scoliosis Fibromyalgia Surgical History History of hysteroscopy (~04/2021) with D&C-- uterine mass; pathology no atypia. Adenomyosis. Performed by [facility]. Hx of appendectomy (~2014) History of tonsillectomy and adenoidectomy (~2012) Family History Family/Other Breast cancer Maternal Aunt x2-- dx age unknown Father Diabetes Mother Hypertension Thyroid disease Grandmother Stroke Maternal and Paternal Grandfather Stroke Maternal Denies family history of Colon cancer Ovarian cancer Heart disease Uterine cancer Social History Smoking and tobacco/nicotine status: never used tobacco/nicotine Second hand smoke exposure: Yes (brother smokes outside) Alcohol intake: current Alcohol intake frequency: holidays/special occasions only Alcohol type: beer, wine and hard liquor Substance/Drug Use: current Substance/Drug use frequency: daily Other substance/drug use details: Medical card Additional social history: - Adopted: No Caregiver/support person: No Lives independently: Yes Household members: family Housing: House Marital status: Single Number of children: 2 Number of grandchildren: 0 Highest education level completed: GED or Equivalent service: No Current occupational status: unemployed Pets and animals: Yes Pets & animals: cat(s) Leisure activites: art, music and other Leisure activities details: play with her children Sexually active: No Do you think of yourself as: Bisexual Current gender identity: Female Maday/Denominational: Mormon Special maday needs: No Agree to transfusion: Yes (05.24.23) MDM - Abdominal Pain Medical Decision Making Patient's presents here with abdominal pain she is pending CT of her abdomen all of blood work patient's care turned over to Dr. Goodrich pending results Care assumed at change of shift CT reviewed discharge patient home CT does not have any significant findings. No leukocytosis recheck if has further problems. Lab Data 08/09/23 04:58 08/09/23 04:58 Labs/Radiology: Radiology Impressions Abdomen/Pelvis CT 08/09/23 00:00 IMPRESSION: No acute subdiaphragmatic pathology. Laboratory Results WBC 10.23 10^3/uL (3.29-11.43) 08/09/23 04:58 RBC 4.59 10^6/uL (3.85-5.65) 08/09/23 04:58 Hgb 13.50 g/dL (11.27-16.99) 08/09/23 04:58 Hct 42.2 % (36-47) 08/09/23 04:58 MCV 91.9 fl (85-98) 08/09/23 04:58 MCH 29.4 pg (27-33) 08/09/23 04:58 MCHC 32.0 g/dL (30-55) 08/09/23 04:58 RDW 13.0 % (12.1-15.1) 08/09/23 04:58 Plt Count 265 10^3/cmm (157-399) 08/09/23 04:58 MPV 12.9 fL (7.4-10.4) H 08/09/23 04:58 Neut % (Auto) 45.2 % 08/09/23 04:58 Lymph % (Auto) 44.0 % 08/09/23 04:58 [place] % (Auto) 7.2 % 08/09/23 04:58 Eos % (Auto) 2.7 % 08/09/23 04:58 Baso % (Auto) 0.6 % 08/09/23 04:58 Neut # (Auto) 4.62 10^3/uL (1.8-7.7) 08/09/23 04:58 Lymph # (Auto) 4.5 10^3/uL (0.8-4.8) 08/09/23 04:58 [place] # (Auto) 0.7 10^3/uL (0.2-0.9) 08/09/23 04:58 Eos # (Auto) 0.3 10^3/uL (0.0-0.8) 08/09/23 04:58 Baso # (Auto) 0.1 10^3/uL (0.0-0.1) 08/09/23 04:58 Nucleated RBC % (auto) 0 % 08/09/23 04:58 Nucleated RBCs # 0.0 /100WBC 08/09/23 04:58 Sodium 140 mmol/L (136-145) 08/09/23 04:58 Potassium 4.5 mmol/L (3.5-5.1) 08/09/23 04:58 Chloride 107 mmol/L (98-107) 08/09/23 04:58 Carbon Dioxide 25 mmol/L (22-29) 08/09/23 04:58 Anion Gap 12.5 (5-19) 08/09/23 04:58 BUN 13 mg/dL (6-20) 08/09/23 04:58 Creatinine 0.7 mg/dL (0.5-0.9) 08/09/23 04:58 GFR Calculation 103.7 mL/min (90-130) 08/09/23 04:58 Glucose 99 mg/dL (65-115) 08/09/23 04:58 Calculated Osmolality 290 mOsm/kg (285-295) 08/09/23 04:58 Calcium 8.9 mg/dL (8.5-10.5) 08/09/23 04:58 Total Bilirubin 0.2 mg/dL (0.15-1.2) 08/09/23 04:58 AST 20 U/L (0-32) 08/09/23 04:58 ALT 16 U/L (0-33) 08/09/23 04:58 Alkaline Phosphatase 74 U/L (35-105) 08/09/23 04:58 Total Protein 6.2 g/dL (6.6-8.7) L 08/09/23 04:58 Albumin 3.8 g/dL (3.5-5.2) 08/09/23 04:58 Globulin 2.4 g/dL (1.3-4.6) 08/09/23 04:58 Lipase 15 U/L (13-60) 08/09/23 04:58 HCG, Qual Negative (Negative) 08/09/23 04:58 Urine Color Light yellow (Yellow) 08/09/23 04:58 Urine Appearance Hazy (CLEAR) A 08/09/23 04:58 Urine pH 6 (5-7) 08/09/23 04:58 Ur Specific [place] 1.020 (1.005-1.030) 08/09/23 04:58 Urine Protein Neg (Negative) 08/09/23 04:58 Urine Glucose (UA) Norm (Normal) 08/09/23 04:58 Urine Ketones Negative (Negative) 08/09/23 04:58 Urine Blood Neg (Negative) 08/09/23 04:58 Urine Nitrate Negative (Negative) 08/09/23 04:58 Urine Bilirubin Neg (Negative) 08/09/23 04:58 Urine Urobilinogen Norm mg/dL (Negative) 08/09/23 04:58 Ur Leukocyte Esterase 1+ (Negative) H 08/09/23 04:58 Urine RBC None /hpf (0-2) 08/09/23 04:58 Urine WBC 5-10 /hpf (0-5) H 08/09/23 04:58 Ur Squamous Epith Cells 10-15 /hpf (0-5) H 08/09/23 04:58 Amorphous Sediment Not Reportable 08/09/23 04:58 Urine Bacteria 1+ /hpf (NONE) H 08/09/23 04:58 Discharge Plan Discharge Patient Disposition: Home Clinical Impression: Abdominal pain Qualifiers: Abdominal location: generalized Qualified Code(s): R10.84 - Generalized abdominal pain Prescriptions: No Action Mirena 20 mcg/24 hours (7 yrs) 52 mg intrauterine device intrauterine trazodone 50 mg tablet 100 mg PO .HS PRN (Reason: insomnia) Qty: 60 1RF duloxetine [Cymbalta] 20 mg capsule,delayed release(DR/EC) 20 mg PO DAILY Qty: 30 1RF acetaminophen 325 mg capsule 325 mg PO Q4H PRN (Reason: fever or pain) Qty: 60 0RF Discharge Orders: Discharge ED (Routine); Ordered 08/09/23 Ordered By: Geovanni Syed Referrals: Torsten Paul [Primary Care Provider] - Patient Instructions: Abdominal Pain (ED), Opioid Safety, Pain Management Coding Level of Care Code ED Nurse Recruiter for Vilma Suazo
[2023-08-09 19:31] LABS: HCG, Serum Qual Negative (Negative)
== END 2023-08-09 12:15 | disposition home or self-care (01) ==
PROVIDERS: Emergency Medicine; Emergency Provider Family Medicine; PCP Physician Assistant Medical
DX: R10.84 Generalized abdominal pain (principal); Z77.22 Contact with and (suspected) exposure to environmental tobacco smoke (acute) (chronic)
CPT/HCPCS: 74177; 80053; 81001; 83690; 84703; 85025; 99284; Q9967

== ENCOUNTER 2023-08-30 20:37 | Emergency (ER) | payer MEDICAID, SELFPAY ==
[2023-08-30 20:41] VITALS: PULSE 106; RESP 18; TEMP 37.3; O2SAT 100; BMI 34.0
--- NOTE | 2023-08-30 21:19 | USR_ITS ---
PROCEDURE INFORMATION: Exam: US Abdomen, Limited; Right Upper Quadrant Exam date and time: 08/30/2023 10:19 PM Age: 22 years old Clinical indication: Abdominal pain; Epigastric; Surgery date: 6+ months; Patient HX: Ruq pain with n+v and diarrhea x 3-4 days. Only prior surgery was appy 2014; Additional info: Positive cook sign. Possible gallbladder pathology. TECHNIQUE: Imaging protocol: Real time ultrasound of the abdomen with image documentation. Limited exam focused on the right upper quadrant. COMPARISON: CT (AiCE 5.000 CE, ABDOMEN, ABDOMEN/PELVIS WITH) 08/09/2023 5:38 AM FINDINGS: Liver: Normal. No masses. Gallbladder: Normal. No gallstones. There is no gallbladder wall thickening. Biliary ducts: Normal. No stones. No dilation. Pancreas: Visualized pancreas is unremarkable. Right kidney: Normal. No mass. No hydronephrosis. US/US abdomen limited [id number] IMPRESSION: No acute findings.
--- NOTE | 2023-08-30 21:20 | W.ED.ABDPA2 ---
HPI - Abdominal Pain General: Chief Complaint: Abdominal Pain Stated Complaint: abdomen pain Time Seen by Provider: 08/30/23 20:40 History of Present Illness: Patient is a 22-year-old female with a past medical history significant for PTSD, anxiety, fibromyalgia, and depression who presents to the emergency department for evaluation of right upper quadrant abdominal pain. Patient reports that her symptoms started approximately 3 days ago and has continued to progress since onset. Patient currently rates her pain as a 7 out of 10 in severity that she describes as a sharp/stabbing sensation. Patient reports that she had several episodes of vomiting yesterday. Patient states that she has also had diarrhea. Patient reports that the pain is constant, however, it is exacerbated with eating. Patient admits to fevers and chills with the highest temperature at home reading of 100.3 ?F. Temperature in triage is 99.1 ?F. LMP was approximately 5 days ago. Patient denies dysuria, hematuria, melena, hematochezia, hematemesis, chest pain, shortness of breath, new onset cough, congestion, sore throat, headache, lightheadedness, dizziness, or any other associated symptoms. Admits to smoking marijuana. She denies smoking tobacco, drinking, or other recreational drug use. No other complaints at this time. Associated Symptoms: Reports chills, diarrhea, fever(s), nausea and vomiting; Denies constipation, dysuria, hematuria and syncope Review of Systems General: Reports: 10 or more systems reviewed and unremarkable except in HPI and below Const: Reports: fever(s) and chills Eyes: Denies: change in vision, blurry vision, eye discharge or eye redness ENMT: Denies: throat pain, ear or mastoid pain, ear discharge, nasal discharge or nasal congestion Card: Denies: chest pain, palpitations, lightheadedness or syncope Resp: Denies: dyspnea, productive cough, non-productive cough or wheezing GI: Reports: abdominal pain, nausea, vomiting and diarrhea; Denies: constipation : Reports: flank pain; Denies: dysuria or hematuria Musc: Denies: neck pain, back pain or extremity pain Skin/Breast: Denies: rash Neuro: Denies: headache(s), dizziness or vertigo PFS ED PFSH: Medical History Psychiatric care Chronic post-traumatic stress disorder (PTSD) Anxiety and depression No pertinent past medical history neghx: htn,dm,thyroid,dvt/pe,herpes -----denies partner with herpes Scoliosis Fibromyalgia Surgical History History of hysteroscopy (~04/2021) with D&C-- uterine mass; pathology no atypia. Adenomyosis. Performed by [facility]. Hx of appendectomy (~2014) History of tonsillectomy and adenoidectomy (~2012) Family History Family/Other Breast cancer Maternal Aunt x2-- dx age unknown Father Diabetes Mother Hypertension Thyroid disease Grandmother Stroke Maternal and Paternal Grandfather Stroke Maternal Denies family history of Colon cancer Ovarian cancer Heart disease Uterine cancer Social History Smoking and tobacco/nicotine status: never used tobacco/nicotine Second hand smoke exposure: Yes (brother smokes outside) Alcohol intake: current Alcohol intake frequency: holidays/special occasions only Alcohol type: beer, wine and hard liquor Substance/Drug Use: current Substance/Drug use frequency: daily Other substance/drug use details: Medical card Additional social history: - Adopted: No Caregiver/support person: No Lives independently: Yes Household members: family Housing: House Marital status: Single Number of children: 2 Number of grandchildren: 0 Highest education level completed: GED or Equivalent service: No Current occupational status: unemployed Pets and animals: Yes Pets & animals: cat(s) Leisure activites: art, music and other Leisure activities details: play with her children Sexually active: No Do you think of yourself as: Bisexual Current gender identity: Female Maday/Confucianism: Adventism Special maday needs: No Agree to transfusion: Yes (05.24.23) Female Reproductive History: Para: 2 Spontaneous abortions: Yes (X2) Physical Exam Const: COMMON NORMALS: no acute distress, patient oriented x3 and alert HENMT: COMMON NORMALS: normocephalic, atraumatic, moist oral mucous membranes and oropharynx normal HEAD & SCALP: normocephalic and atraumatic Eye: COMMON NORMALS: Equal, round and reactive pupils present, EOMs intact bilaterally, conjunctivae normal and no scleral icterus CONJUNCTIVA: Yes conjunctivae normal PUPIL: Yes Equal, round and reactive pupils present Neck/C-Spine: COMMON NORMALS: full ROM, no lymphadenopathy, supple and no meningeal signs Chest: COMMONS NORMALS: normal inspection of the chest Resp: COMMON NORMALS: normal respiratory effort, No retractions, No use of accessory muscles and clear to auscultation bilaterally AUSCULTATION: clear to auscultation bilaterally Cardio: COMMON NORMALS: regular rate, regular rhythm, S1 normal heart sound present, S2 normal heart sound present, No gallops present (Cardio), No clicks present (Cardio), No murmurs present (Cardio) and No rub (Cardio) RATE: regular rate RHYTHM: regular rhythm HEART SOUNDS: S1 normal heart sound present and S2 normal heart sound present GI: OTHER: Normoactive bowel sounds in all 4 quadrants. Positive Stern sign. Right CVA tenderness noted. No McBurney's point tenderness, Rovsing sign, or peritoneal signs noted. No evidence of rebound tenderness. : COMMON NORMALS: No no CVA tenderness (Right CVA tenderness noted.) BLADDER/KIDNEY EXAM: No no CVA tenderness (Right CVA tenderness noted.) Back/Pelvis: COMMON NORMALS: negative for no CVA tenderness (Right CVA tenderness noted.) Extremity: OTHER: Moving bilateral upper and lower extremities without weakness or deficit. Neuro: COMMON NORMALS: patient oriented x3 SENSORIUM/ORIENTATION: Yes alert MENINGEAL SIGNS: Yes no meningeal signs OTHER: Sensation intact in the bilateral upper and lower extremities. Skin: COMMON NORMALS: no rashes or lesions noted GENERAL SKIN EXAM: no rashes or lesions noted Course Vital Signs: Vital signs: Vital Signs Temperature 99.1 F 08/30/23 20:41 Pulse Rate 86 08/30/23 22:01 Respiratory Rate 18 08/30/23 20:41 Blood Pressure 111/66 08/30/23 22:01 Pulse Oximetry 94 08/30/23 22:01 Oxygen Delivery Me thod Room Air 08/30/23 20:41 MDM - Abdominal Pain Medical Decision Making Patient is a 22-year-old female with a past medical history significant for PTSD, anxiety, fibromyalgia, and depression who presents to the emergency department for evaluation of right upper quadrant abdominal pain. On physical examination patient is nontoxic and in no acute distress. Vital signs stable at discharge. Patient is afebrile. CBC, CMP, lipase, urine , urinalysis, influenza, and COVID-19 all grossly unremarkable. Ultrasound of the right upper quadrant showed no acute findings or evidence of cholecystitis. CT of the abdomen and pelvis without contrast was ordered for evaluation of possible nephrolithiasis. CT showed edema in the lower abdominal mesentery somewhat about the sigmoid colon, please correlate for possible mild colitis. IUD in the uterine cavity. Left ovary 19 mm cyst, likely follicular. Patient has no adnexal tenderness. I do not think ovarian torsion is likely at this time. Patient reports that the majority of her pain is in the right upper quadrant. Given the patient's history of diarrhea I will treat for possible colitis with metronidazole and ciprofloxacin. First dose given in the emergency department. See handouts over generalize instructions. Increase oral hydration. A prescription of ciprofloxacin and metronidazole was sent to your pharmacy be picked up. Take medications as prescribed. Avoid large fatty greasy meals that can exacerbate your symptoms. Clear liquid diet and slowly advance as tolerated. Call your primary care provider tomorrow with an update of your symptoms and schedule appointment for further management/evaluation. Return to the emergency department for any rapid or worsening symptoms to include but not limited to worsening abdominal pain, fever, vomiting, lightheadedness, dizziness, chest pain, shortness of breath, or as needed. Patient stated understanding of all discharge instructions was agreeable to plan of care. I discussed patient's history, exam, and all findings with Dr. Cloud in the emergency department who agreed my assessment and plan. He did not feel the patient required admission or further evaluation at this time. Differential diagnosis includes but is not limited to pancreatitis, appendicitis, cholecystitis, nephrolithiasis, urinary tract infection, ovarian torsion, ectopic Lab Data 08/30/23 21:50 08/30/23 21:50 Labs/Radiology: Radiology Impressions Abdomen Ultrasound 08/30/23 21:19 IMPRESSION: No acute findings. Abdomen/Pelvis CT 08/30/23 23:34 IMPRESSION: 1. Edema in the lower abdominal mesentery somewhat about the sigmoid colon, please correlate for possible mild colitis. 2. IUD in the uterine cavity. 3. Left ovary 19 mm cyst, likely follicular. Laboratory Results WBC 9.52 10^3/uL (3.29-11.43) 08/30/23 21:50 RBC 4.43 10^6/uL (3.85-5.65) 08/30/23 21:50 Hgb 13.20 g/dL (11.27-16.99) 08/30/23 21:50 Hct 39.8 % (36-47) 08/30/23 21:50 MCV 89.8 fl (85-98) 08/30/23 21:50 MCH 29.8 pg (27-33) 08/30/23 21:50 MCHC 33.2 g/dL (30-55) 08/30/23 21:50 RDW 13.2 % (12.1-15.1) 08/30/23 21:50 Plt Count 239 10^3/cmm (157-399) 08/30/23 21:50 MPV 11.7 fL (7.4-10.4) H 08/30/23 21:50 Neut % (Auto) 68.1 % 08/30/23 21:50 Lymph % (Auto) 23.0 % 08/30/23 21:50 [place] % (Auto) 7.1 % 08/30/23 21:50 Eos % (Auto) 1.1 % 08/30/23 21:50 Baso % (Auto) 0.4 % 08/30/23 21:50 Neut # (Auto) 6.48 10^3/uL (1.8-7.7) 08/30/23 21:50 Lymph # (Auto) 2.2 10^3/uL (0.8-4.8) 08/30/23 21:50 [place] # (Auto) 0.7 10^3/uL (0.2-0.9) 08/30/23 21:50 Eos # (Auto) 0.1 10^3/uL (0.0-0.8) 08/30/23 21:50 Baso # (Auto) 0.0 10^3/uL (0.0-0.1) 08/30/23 21:50 Nucleated RBC % (auto) 0 % 08/30/23 21:50 Nucleated RBCs # 0.0 /100WBC 08/30/23 21:50 Sodium 140 mmol/L (136-145) 08/30/23 21:50 Potassium 4.2 mmol/L (3.5-5.1) 08/30/23 21:50 Chloride 105 mmol/L (98-107) 08/30/23 21:50 Carbon Dioxide 25 mmol/L (22-29) 08/30/23 21:50 Anion Gap 14.2 (5-19) 08/30/23 21:50 BUN 8 mg/dL (6-20) 08/30/23 21:50 Creatinine 0.6 mg/dL (0.5-0.9) 08/30/23 21:50 GFR Calculation 123.9 mL/min (90-130) 08/30/23 21:50 Glucose 106 mg/dL (65-115) 08/30/23 21:50 Calculated Osmolality 289 mOsm/kg (285-295) 08/30/23 21:50 Calcium 9.4 mg/dL (8.5-10.5) 08/30/23 21:50 Total Bilirubin 0.3 mg/dL (0.15-1.2) 08/30/23 21:50 AST 18 U/L (0-32) 08/30/23 21:50 ALT 14 U/L (0-33) 08/30/23 21:50 Alkaline Phosphatase 82 U/L (35-105) 08/30/23 21:50 Total Protein 7.1 g/dL (6.6-8.7) 08/30/23 21:50 Albumin 4.0 g/dL (3.5-5.2) 08/30/23 21:50 Globulin 3.1 g/dL (1.3-4.6) 08/30/23 21:50 Lipase 10 U/L (13-60) L 08/30/23 21:50 HCG, Qual Negative (Negative) 08/30/23 21:50 Urine Color Yellow (Yellow) 08/30/23 22:00 Urine Appearance Clear (CLEAR) 08/30/23 22:00 Urine pH 8 (5-7) H 08/30/23 22:00 Ur Specific [place] 1.015 (1.005-1.030) 08/30/23 22:00 Urine Protein Neg (Negative) 08/30/23 22:00 Urine Glucose (UA) Norm (Normal) 08/30/23 22:00 Urine Ketones Negative (Negative) 08/30/23 22:00 Urine Blood Neg (Negative) 08/30/23 22:00 Urine Nitrate Negative (Negative) 08/30/23 22:00 Urine Bilirubin Neg (Negative) 08/30/23 22:00 Prot Sulfosalicylic Acd Negative (Negative) 08/30/23 22:00 Urine Urobilinogen Neg mg/dL (Negative) 08/30/23 22:00 Ur Leukocyte Esterase Negative (Negative) 08/30/23 22:00 Influenza Type A Ag negative (Negative) 08/30/23 22:00 Influenza Type B Ag negative (Negative) 08/30/23 22:00 SARS-CoV-2 Ag (Rapid) negative (Negative) 08/30/23 22:00 All radiology interpretation(s) finalized by discharge Discharge Plan Discharge Patient Disposition: Home Clinical Impression: Colitis Condition: Stable Prescriptions: New ciprofloxacin HCl 500 mg tablet 500 mg PO BID 7 Days Qty: 14 0RF metronidazole 500 mg tablet 500 mg PO TID 7 Days Qty: 21 0RF No Action Mirena 20 mcg/24 hours (7 yrs) 52 mg intrauterine device intrauterine trazodone 50 mg tablet 100 mg PO .HS PRN (Reason: insomnia) Qty: 60 1RF duloxetine [Cymbalta] 20 mg capsule,delayed release(DR/EC) 20 mg PO DAILY Qty: 30 1RF acetaminophen 325 mg capsule 325 mg PO Q4H PRN (Reason: fever or pain) Qty: 60 0RF Discharge Orders: Discharge ED (Routine); Ordered 08/31/23 Ordered By: Torsten Bernal Patient Instructions: Colitis (ED) Activity Restrictions/Additional Instructions: See handouts over generalize instructions. Increase oral hydration. A prescription of ciprofloxacin and metronidazole was sent to your pharmacy be picked up. Take medications as prescribed. Avoid large fatty greasy meals that can exacerbate your symptoms. Clear liquid diet and slowly advance as tolerated. Call your primary care provider tomorrow with an update of your symptoms and schedule appointment for further management/evaluation. Return to the emergency department for any rapid or worsening symptoms to include but not limited to worsening abdominal pain, fever, vomiting, lightheadedness, dizziness, chest pain, shortness of breath, or as needed. 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
[2023-08-30 21:56] LABS: Basophils % 0.4 %; Eosinophils # 0.1 10^3/uL (0.0-0.8); Eosinophils % 1.1 %; Hematocrit 39.8 % (36-47); Lymphocytes # 2.2 10^3/uL (0.8-4.8); Mean Corpuscular HGB Conc 33.2 g/dL (30-55); Mean Corpuscular Hemoglobin 29.8 pg (27-33); Mean Corpuscular Volume 89.8 fl (85-98); Mean Platelet Volume 11.7 fL (7.4-10.4); Monocytes # 0.7 10^3/uL (0.2-0.9); Monocytes % 7.1 %; Neutrophils # 6.48 10^3/uL (1.8-7.7); Neutrophils % 68.1 %; Nucleated Red Blood Cells % 0 %; Platelet Count 239 10^3/cmm (157-399); Red Blood Count 4.43 10^6/uL (3.85-5.65); Red Cell Distribution Width 13.2 % (12.1-15.1); White Blood Count 9.52 10^3/uL (3.29-11.43)
[2023-08-30 22:01] VITALS: BP 111/66; PULSE 86; O2SAT 94
[2023-08-30] MEDS: sodium chloride 0.9% 1,000 ML 999 ML IV (22:02)
[2023-08-30 22:06] LABS: Add Urine Microscopic? NO; Charge for UA Resulting for Rev
[2023-08-30 22:13] LABS: Bilirubin Urine Neg (Negative); Blood Urine Neg (Negative); Glucose Urine UA Norm (Normal); Ketones Urine Negative (Negative); Leukocyte Esterase Urine Negative (Negative); Nitrate Urine Negative (Negative); Protein Urine Neg (Negative); Specific Gravity, Urine 1.015 (1.005-1.030); Sulfosalicylic Acid Urine Negative (Negative); Urine Appearance Clear (CLEAR); Urine Color Yellow (Yellow); Urobilinogen Urine Neg (Negative); pH Urine 8 (5-7)
[2023-08-30 22:19] LABS: Alanine Aminotransferase 14 U/L (0-33); Alkaline Phosphatase 82 U/L (35-105); Anion Gap 14.2 (5-19); Aspartate Amino Transferase 18 U/L (0-32); Blood Urea Nitrogen 8 mg/dL (6-20); Calcium 9.4 mg/dL (8.5-10.5); Carbon Dioxide 25 mmol/L (22-29); Chloride 105 mmol/L (98-107); Creatinine Clr Calc Pharmacy 187.5056; Globulin 3.1 g/dL (1.3-4.6); Glomerular Filtration Rate 123.9 mL/min (90-130); Glucose 106 mg/dL (65-115); HCG, Serum Qual Negative (Negative); Lipase 10 U/L (13-60); Osmolality Calculated 289 mOsm/kg (285-295); Potassium 4.2 mmol/L (3.5-5.1); Sodium 140 mmol/L (136-145); Total Bilirubin 0.3 mg/dL (0.15-1.2); Total Protein 7.1 g/dL (6.6-8.7)
[2023-08-30 22:24] LABS: Influenza A by IFA negative (Negative); Influenza B by IFA negative (Negative); SARS Covid-2 Antigen negative (Negative)
--- NOTE | 2023-08-30 23:34 | CTR_ITS ---
PROCEDURE INFORMATION: Exam: CT Abdomen And Pelvis Without Contrast Exam date and time: 08/30/2023 11:40 PM Age: 22 years old Clinical indication: Abdominal pain; Localized; Right; Prior surgery; Surgery date: 6+ months; Surgery type: Appy; Additional info: Right flank pain TECHNIQUE: Imaging protocol: Computed tomography of the abdomen and pelvis without contrast. Radiation optimization: All CT scans at this facility use at least one of these dose optimization techniques: automated exposure control; mA and/or kV adjustment per patient size (includes targeted exams where dose is matched to clinical indication); or iterative reconstruction. REPORTING DATA: Count of CT and Cardiac NM exams in prior 12 months: This patient has received 0 known CTs and 0 known cardiac nuclear medicine studies in the 12 months prior to the current study. COMPARISON: CT (AiCE 5.000 CE, ABDOMEN, ABDOMEN/PELVIS WITH) 08/09/2023 5:38 AM RADIATION DOSE METRICS: Total DLP (mGy-cm): 932.85 FINDINGS: Liver: Normal. No mass. Gallbladder and bile ducts: Normal. No calcified stones. No ductal dilation. Pancreas: Normal. No ductal dilation. Spleen: Normal. No splenomegaly. Adrenal glands: Normal. No mass. Kidneys and ureters: Normal. No hydronephrosis. Stomach and bowel: Edema in the lower abdominal mesentery somewhat about the sigmoid colon, please correlate for possible mild colitis. Appendix: No evidence of appendicitis. Intraperitoneal space: Unremarkable. No free air. No significant fluid collection. Vasculature: Unremarkable. No abdominal aortic aneurysm. Lymph nodes: Unremarkable. No enlarged lymph nodes. Urinary bladder: Unremarkable as visualized. Reproductive: IUD in the uterine cavity. Left ovary 19 mm cyst, likely follicular. Bones/joints: Unremarkable. No acute fracture. Soft tissues: Unremarkable. CT/CT abdomen pelvis wo con [id number] IMPRESSION: 1. Edema in the lower abdominal mesentery somewhat about the sigmoid colon, please correlate for possible mild colitis. 2. IUD in the uterine cavity. 3. Left ovary 19 mm cyst, likely follicular.
[2023-08-31] MEDS: ciprofloxacin 500 mg Tablet PO (00:58)
[2023-08-31] MEDS: metroNIDAZOLE 500 MG Tablet PO (00:58)
[2023-08-31 01:25] VITALS: BP 114/71; PULSE 78; RESP 18; O2SAT 98
== END 2023-08-31 01:26 | disposition home or self-care (01) ==
PROVIDERS: Emergency Medicine; Emergency Provider Physician Assistant
DX: K52.9 Noninfective gastroenteritis and colitis, unspecified (principal); Z11.52 Encounter for screening for COVID-19; N83.202 Unspecified ovarian cyst, left side
CPT/HCPCS: 74176; 76705; 80053; 81003; 83690; 84703; 85025; 87426; 87804; 96360; 96361; 99285; J7030

== ENCOUNTER 2023-09-08 01:27 | Emergency (ER) | payer MEDICAID, SELFPAY ==
[2023-09-08 01:33] VITALS: BP 131/93; PULSE 96; RESP 14; TEMP 36.7; O2SAT 98; BMI 32.5
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
[2023-09-08] MEDS: TRAMadol 50 mg Tablet PO (01:50)
[2023-09-08 02:23] VITALS: BP 131/93; PULSE 96; RESP 14; TEMP 36.7; O2SAT 98
== END 2023-09-08 02:25 | disposition home or self-care (01) ==
PROVIDERS: Emergency Provider Family Medicine
DX: S60.041A Contusion of right ring finger without damage to nail, initial encounter (principal); Z77.22 Contact with and (suspected) exposure to environmental tobacco smoke (acute) (chronic); Y04.2XXA Assault by strike against or bumped into by another person, initial encounter
CPT/HCPCS: 73130; 99283

== ENCOUNTER 2023-10-12 20:40 | Emergency (ER) | payer MEDICAID, SELFPAY ==
[2023-10-12 20:45] VITALS: BP 132/90; PULSE 82; RESP 15; TEMP 36.6; O2SAT 99
[2023-10-12 21:45] LABS: Basophils # 0.1 10^3/uL (0.0-0.1); Basophils % 0.7 %; Eosinophils # 0.3 10^3/uL (0.0-0.8); Eosinophils % 2.2 %; Hematocrit 38.3 % (36-47); Lymphocytes # 3.6 10^3/uL (0.8-4.8); Lymphocytes % 30.1 %; Mean Corpuscular HGB Conc 33.2 g/dL (30-55); Mean Corpuscular Hemoglobin 30.2 pg (27-33); Mean Corpuscular Volume 91.2 fl (85-98); Monocytes # 1.1 10^3/uL (0.2-0.9); Monocytes % 8.9 %; Neutrophils # 6.89 10^3/uL (1.8-7.7); Neutrophils % 57.8 %; Nucleated Red Blood Cells % 0 %; Platelet Count 255 10^3/cmm (157-399); White Blood Count 11.91 10^3/uL (3.29-11.43)
[2023-10-12 22:16] LABS: HCG, Serum Qual Negative (Negative)
--- NOTE | 2023-10-12 23:01 | W.ED.FEMALGU ---
HPI - Female Genitourinary General: Chief complaint: Vaginal Bleeding Stated complaint: vaginal bleeding Time Seen by Provider: 10/12/23 23:00 History of Present Illness: 22-year-old female comes in today for complaints of dizziness and feeling unwell. Patient also reports vaginal bleeding. Patient appears nontoxic. Patient appears in no pain. Patient has a history of ovarian cysts and fibromyalgia. Review of Systems General: Reports: 10 or more systems reviewed and unremarkable except in HPI and below PFSH ED PFSH: Medical History Psychiatric care Chronic post-traumatic stress disorder (PTSD) Anxiety and depression No pertinent past medical history neghx: htn,dm,thyroid,dvt/pe,herpes -----denies partner with herpes Scoliosis Fibromyalgia Surgical History History of hysteroscopy (~04/2021) with D&C-- uterine mass; pathology no atypia. Adenomyosis. Performed by [facility]. Hx of appendectomy (~2014) History of tonsillectomy and adenoidectomy (~2012) Family History Family/Other Breast cancer Maternal Aunt x2-- dx age unknown Father Diabetes Mother Hypertension Thyroid disease Grandmother Stroke Maternal and Paternal Grandfather Stroke Maternal Denies family history of Colon cancer Ovarian cancer Heart disease Uterine cancer Social History Smoking and tobacco/nicotine status: never used tobacco/nicotine Second hand smoke exposure: Yes (brother smokes outside) Alcohol intake: current Alcohol intake frequency: holidays/special occasions only Alcohol type: beer, wine and hard liquor Substance/Drug Use: current Substance/Drug use frequency: daily Other substance/drug use details: Medical card Additional social history: - Adopted: No Caregiver/support person: No Lives independently: Yes Household members: family Housing: House Marital status: Single Number of children: 2 Number of grandchildren: 0 Highest education level completed: GED or Equivalent service: No Current occupational status: unemployed Pets and animals: Yes Pets & animals: cat(s) Leisure activites: art, music and other Leisure activities details: play with her children Sexually active: No Do you think of yourself as: Bisexual Current gender identity: Female Maday/Synagogue: Spiritism Special maday needs: No Agree to transfusion: Yes (05.24.23) Female Reproductive History: Para: 2 Spontaneous abortions: Yes (X2) Physical Exam Const: COMMON NORMALS: alert HENMT: COMMON NORMALS: normocephalic HEAD & SCALP: normocephalic Neck/C-Spine: COMMON NORMALS: full ROM Resp: COMMON NORMALS: normal respiratory effort and clear to auscultation bilaterally AUSCULTATION: clear to auscultation bilaterally Cardio: COMMON NORMALS: regular rate and regular rhythm RATE: regular rate RHYTHM: regular rhythm Extremity: COMMON NORMALS: full ROM Neuro: SENSORIUM/ORIENTATION: Yes alert Skin: COMMON NORMALS: turgor normal GENERAL SKIN EXAM: turgor normal Course Vital Signs: Vital signs: Vital Signs Temperature 97.8 F 10/12/23 20:45 Pulse Rate 58 L 10/12/23 23:11 Respiratory Rate 16 10/12/23 23:11 Blood Pressure 130/84 10/12/23 23:11 Pulse Oximetry 97 10/12/23 23:11 Oxygen Delivery Me thod Room Air 10/12/23 23:11 MDM - Female Medical Decision Making Patient came in due to dizziness and abnormal vaginal bleeding. On exam patient was alert and oriented. Lungs were clear to auscultation. Skin was warm and dry. Color was pink. Abdomen soft. Bowel sounds are present. Vital signs are normal. Differential diagnosis includes anemia, ovarian cyst, dysfunctional uterine bleeding, UTI. CBC was normal. hCG was negative. No signs of severe injury or illness was noted. Reviewed exam with patient with recommendations for treatment and follow-up. Patient was given a work note per her request and will be set up with follow-up with LEAD QUALITY CONTROL TECHNICIAN. Lab Data 10/12/23 21:35 Laboratory Results WBC 11.91 10^3/uL (3.29-11.43) H 10/12/23 21:35 RBC 4.20 10^6/uL (3.85-5.65) 10/12/23 21:35 Hgb 12.70 g/dL (11.27-16.99) 10/12/23 21:35 Hct 38.3 % (36-47) 10/12/23 21:35 MCV 91.2 fl (85-98) 10/12/23 21:35 MCH 30.2 pg (27-33) 10/12/23 21:35 MCHC 33.2 g/dL (30-55) 10/12/23 21:35 RDW 14.0 % (12.1-15.1) 10/12/23 21:35 Plt Count 255 10^3/cmm (157-399) 10/12/23 21:35 MPV 12.0 fL (7.4-10.4) H 10/12/23 21:35 Neut % (Auto) 57.8 % 10/12/23 21:35 Lymph % (Auto) 30.1 % 10/12/23 21:35 Yell % (Auto) 8.9 % 10/12/23 21:35 Eos % (Auto) 2.2 % 10/12/23 21:35 Baso % (Auto) 0.7 % 10/12/23 21:35 Neut # (Auto) 6.89 10^3/uL (1.8-7.7) 10/12/23 21:35 Lymph # (Auto) 3.6 10^3/uL (0.8-4.8) 10/12/23 21:35 Yell # (Auto) 1.1 10^3/uL (0.2-0.9) H 10/12/23 21:35 Eos # (Auto) 0.3 10^3/uL (0.0-0.8) 10/12/23 21:35 Baso # (Auto) 0.1 10^3/uL (0.0-0.1) 10/12/23 21:35 Nucleated RBC % (auto) 0 % 10/12/23 21:35 Nucleated RBCs # 0.0 /100WBC 10/12/23 21:35 HCG, Qual Negative (Negative) 10/12/23 21:35 No radiology studies performed this visit Discharge Plan Discharge Patient Disposition: Home Clinical Impression: Abnormal uterine bleeding (AUB), Dizziness Ovarian cyst Qualifiers: Laterality: unspecified laterality Qualified Code(s): N83.209 - Unspecified ovarian cyst, unspecified side Condition: Stable Prescriptions: No Action Mirena 20 mcg/24 hours (7 yrs) 52 mg intrauterine device intrauterine trazodone 50 mg tablet 100 mg PO .HS PRN (Reason: insomnia) Qty: 60 1RF duloxetine [Cymbalta] 20 mg capsule,delayed release(DR/EC) 20 mg PO DAILY Qty: 30 1RF acetaminophen 325 mg capsule 325 mg PO Q4H PRN (Reason: fever or pain) Qty: 60 0RF naproxen 500 mg tablet 500 mg PO Q12H PRN (Reason: pain) Qty: 30 0RF Discharge Orders: Discharge ED (Routine); Ordered 10/12/23 Ordered By: Selwyn Calabrese Discharge Diet: Usual diet Discharge Activity: Increase activity as tolerated Patient Instructions: Ovarian Cyst (ED) Activity Restrictions/Additional Instructions: Home and rest. Activity as tolerated. Drink plenty of water and fluids. Follow-up with LEAD QUALITY CONTROL TECHNICIAN. Stand Alone Forms: Work/School Release Coding Level of Care Code ED Field Collector for Vilma Suazo
[2023-10-12 23:11] VITALS: BP 130/84; PULSE 58; RESP 16; O2SAT 97
[2023-10-12 23:23] VITALS: BP 130/84; PULSE 72; RESP 14; O2SAT 97
--- NOTE | 2023-10-13 08:03 | DCPLANNER ---
Referral was sent to [facility] on 10/13/23 at 0808. Clinic to contact patient for appointment.
== END 2023-10-12 23:24 | disposition home or self-care (01) ==
PROVIDERS: Emergency Medicine; Emergency Provider Nurse Practitioner Family
DX: N93.9 Abnormal uterine and vaginal bleeding, unspecified (principal); N83.209 Unspecified ovarian cyst, unspecified side; R42 Dizziness and giddiness
CPT/HCPCS: 36415; 84703; 85025; 99283

== ENCOUNTER 2023-10-20 00:17 | Emergency (ER) | payer MEDICAID, SELFPAY ==
[2023-10-20 00:22] VITALS: BP 134/88; PULSE 84; RESP 18; TEMP 36.6; O2SAT 98; BMI 32.5
[2023-10-20 00:26] VITALS: PULSE 57; RESP 14; O2SAT 96
--- NOTE | 2023-10-20 00:38 | W.ED.NECK ---
HPI - Neck Pain/Injury General: Chief Complaint: Neck Pain/Injury Stated Complaint: neck/head pain Time Seen by Provider: 10/20/23 00:21 History of Present Illness: Patient presents to the ER with neck pain radiating up to the back of her head and beginning to be a migraine. Patient states she popped her neck around 1830 when she developed a sudden pain in her head which then progressively radiated over the top of her head up to the front of her head. Patient does have a history of migraines but does not get them very often. Patient says she is already taken hydrocodone at home and this did not help. Patient is sensitive to light and sound. Review of Systems General: Reports: 10 or more systems reviewed and unremarkable except in HPI and below PFSH ED PFSH: Medical History Psychiatric care Chronic post-traumatic stress disorder (PTSD) Anxiety and depression No pertinent past medical history neghx: htn,dm,thyroid,dvt/pe,herpes -----denies partner with herpes Scoliosis Fibromyalgia Surgical History History of hysteroscopy (~04/2021) with D&C-- uterine mass; pathology no atypia. Adenomyosis. Performed by [facility]. Hx of appendectomy (~2014) History of tonsillectomy and adenoidectomy (~2012) Family History Family/Other Breast cancer Maternal Aunt x2-- dx age unknown Father Diabetes Mother Hypertension Thyroid disease Grandmother Stroke Maternal and Paternal Grandfather Stroke Maternal Denies family history of Colon cancer Ovarian cancer Heart disease Uterine cancer Social History Smoking and tobacco/nicotine status: never used tobacco/nicotine Second hand smoke exposure: Yes (brother smokes outside) Alcohol intake: current Alcohol intake frequency: holidays/special occasions only Alcohol type: beer, wine and hard liquor Substance/Drug Use: current Substance/Drug use frequency: daily Other substance/drug use details: Medical card Additional social history: - Adopted: No Caregiver/support person: No Lives independently: Yes Household members: family Housing: House Marital status: Single Number of children: 2 Number of grandchildren: 0 Highest education level completed: GED or Equivalent service: No Current occupational status: unemployed Pets and animals: Yes Pets & animals: cat(s) Leisure activites: art, music and other Leisure activities details: play with her children Sexually active: No Do you think of yourself as: Bisexual Current gender identity: Female Maday/Zoroastrian: Zoroastrianism Special maday needs: No Agree to transfusion: Yes (05.24.23) Female Reproductive History: Date of last menstrual period: 10/11/23 Para: 2 Spontaneous abortions: Yes (X2) Physical Exam Const: COMMON NORMALS: no acute distress, average body habitus, patient oriented x3, no limitations, healthy appearing, alert and well nourished HENMT: COMMON NORMALS: normocephalic, atraumatic, hearing grossly normal bilaterally, external ears normal, Normal external nose present, moist oral mucous membranes and oropharynx normal HEAD & SCALP: normocephalic and atraumatic NOSE: Normal external nose present EXTERNAL EAR: Yes external ears normal Eye: COMMON NORMALS: Equal, round and reactive pupils present, EOMs intact bilaterally, conjunctivae normal and no scleral icterus CONJUNCTIVA: Yes conjunctivae normal PUPIL: Yes Equal, round and reactive pupils present Neck/C-Spine: COMMON NORMALS: supple, no meningeal signs, no JVD and Thyroid normal; negative for full ROM (Limited range of motion tender to palpation at the base of the skull) THYROID: Thyroid normal Chest: COMMONS NORMALS: normal inspection of the chest and normal palpation of entire chest wall Resp: COMMON NORMALS: normal respiratory effort, No retractions, No use of accessory muscles and clear to auscultation bilaterally AUSCULTATION: clear to auscultation bilaterally Cardio: COMMON NORMALS: no JVD, regular rate, regular rhythm, S1 normal heart sound present, S2 normal heart sound present, No gallops present (Cardio), No clicks present (Cardio), No murmurs present (Cardio) and No rub (Cardio) RATE: regular rate RHYTHM: regular rhythm HEART SOUNDS: S1 normal heart sound present and S2 normal heart sound present GI: COMMON NORMALS: Normal to inspection, nondistended, normoactive bowel sounds present, Soft to palpation, non-tender, No hepatosplenomegaly present and no masses PALPATION: Yes Soft to palpation and Yes No hepatosplenomegaly present Neuro: COMMON NORMALS: patient oriented x3 SENSORIUM/ORIENTATION: Yes alert MENINGEAL SIGNS: Yes no meningeal signs Course Vital Signs: Vital signs: Vital Signs Temperature 97.9 F 10/20/23 00:22 Pulse Rate 62 10/20/23 01:25 Respiratory Rate 14 10/20/23 01:25 Blood Pressure 119/72 10/20/23 01:25 Pulse Oximetry 99 10/20/23 01:25 Oxygen Delivery Me thod Room Air 10/20/23 00:26 MDM - Neck Pain/Injury Medical Decision Making Patient was given Toradol 60 mg and Norflex 60 mg and the pain was drastically reduced. Patient be discharged home with instructions to limit the popping of her neck. Patient should follow-up with her PCP within next 7 days for further evaluation and treatment as needed. Differential Diagnosis Likely strain of neck muscle; Unlikely disc disorder of cervical region, whiplash injury to neck, closed subluxation of cervical spine, fracture of cervical spine without lesion of spinal cord, cervical radiculopathy, vertebral artery dissection, torticollis or cervical spondylosis Medical Records I reviewed the patient's medical records. Lab Data I reviewed the patient's lab results. All radiology interpretation(s) finalized by discharge Discharge Plan Discharge Patient Disposition: Home Clinical Impression: Acute neck pain Acute tension headache Qualifiers: Intractability: not intractable Qualified Code(s): G44.209 - Tension-type headache, unspecified, not intractable Condition: Stable Prescriptions: No Action Mirena 20 mcg/24 hours (7 yrs) 52 mg intrauterine device intrauterine trazodone 50 mg tablet 100 mg PO .HS PRN (Reason: insomnia) Qty: 60 1RF duloxetine [Cymbalta] 20 mg capsule,delayed release(DR/EC) 20 mg PO DAILY Qty: 30 1RF acetaminophen 325 mg capsule 325 mg PO Q4H PRN (Reason: fever or pain) Qty: 60 0RF naproxen 500 mg tablet 500 mg PO Q12H PRN (Reason: pain) Qty: 30 0RF Discharge Orders: Discharge ED (Routine); Ordered 10/20/23 Ordered By: Prosper Cloud Patient Instructions: Tension Headache, Acute Neck Pain (ED) Activity Restrictions/Additional Instructions: Please limit the popping of your neck as this may contribute to more neck pain and headaches in the future. Please follow-up with your family practice physician for within the next 7 days for further evaluation and treatment as needed. Coding Level of Care Code ED Senior Software Engineer for Vilma Suazo
[2023-10-20] MEDS: ketorolac 60 mg/2 mL INJ IM (00:39)
[2023-10-20] MEDS: orphenadrine 30 mg/mL Inj 2 mL 60 MG IM (00:42)
[2023-10-20 01:25] VITALS: BP 119/72; PULSE 62; RESP 14; O2SAT 99
== END 2023-10-20 01:57 | disposition home or self-care (01) ==
PROVIDERS: Emergency Provider Emergency Medicine
DX: M54.2 Cervicalgia (principal); G44.209 Tension-type headache, unspecified, not intractable; Z77.22 Contact with and (suspected) exposure to environmental tobacco smoke (acute) (chronic)
CPT/HCPCS: 96372; 99284; J1885; J2360

== ENCOUNTER → 2023-11-24 15:59 | Outpatient (BNVA) | payer OTHER, SELFPAY | PROVIDERS: Visit Provider Psychiatry & Neurology Psychiatry | DX: F43.12 Post-traumatic stress disorder, chronic (principal) | CPT/HCPCS: 80061; 83036 ==

== ENCOUNTER 2024-08-18 23:04 | Emergency (ER) | payer MEDICAID, SELFPAY ==
[2023-11-25 12:41] VITALS: BP 123/81; BMI 32.5
[2024-08-18 23:13] VITALS: BP 122/80; PULSE 88; RESP 17; TEMP 36.7; O2SAT 100; BMI 32.5
[2024-08-19 01:14] LABS: Rapid Strep A Test Negative (Negative)
--- NOTE | 2024-08-19 01:19 | W.ED.URI ---
HPI - URI/Sore Throat General: Chief Complaint: Upper Respiratory Infection Stated Complaint: Throat Hurts\Conjestion Time Seen by Provider: 08/19/24 01:18 History of Present Illness: 23-year-old female with sore throat, congestion, cough, and nausea with a couple of episodes of diarrhea over the past 3 to 4 days. Fever to 100.2 at home she says. Known sick contact and her [id number]. No rashes. She believes she could be . Related Data Previous Rx's Medication Instructions Recorded ondansetron 4 mg disintegrating 4 mg PO Q6H PRN nausea and 08/19/24 tablet vomiting #14 tabs Allergies Allergy/AdvReac Type Severity Reaction Status Date / Time No Known Allergies Allergy Verified 08/18/24 23:16 [facility] ED PFS: Medical History Psychiatric care Chronic post-traumatic stress disorder (PTSD) Anxiety and depression No pertinent past medical history neghx: htn,dm,thyroid,dvt/pe,herpes -----denies partner with herpes Scoliosis Fibromyalgia Surgical History History of hysteroscopy (~04/2021) with D&C-- uterine mass; pathology no atypia. Adenomyosis. Performed by [facility]. Hx of appendectomy (~2014) History of tonsillectomy and adenoidectomy (~2012) Family History Family/Other Breast cancer Maternal Aunt x2-- dx age unknown Father Diabetes Mother Hypertension Thyroid disease Grandmother Stroke Maternal and Paternal Grandfather Stroke Maternal Denies family history of Colon cancer Ovarian cancer Heart disease Uterine cancer Social History Smoking and tobacco/nicotine status: never used tobacco/nicotine Female Reproductive History: Date of last menstrual period: 08/01/24 Para: 2 Spontaneous abortions: Yes (X2) Physical Exam Const: COMMON NORMALS: no acute distress GENERAL APPEARANCE: cooperative; not ill appearing and not frail appearing HENMT: COMMON NORMALS: normocephalic, atraumatic, TM's normal bilaterally and Normal external nose present HEAD & SCALP: normocephalic and atraumatic FACE & SINUS: normal facial exam and face symmetric NOSE: Normal external nose present TYMPANIC MEMBRANE: TM's normal bilaterally THROAT: posterior oropharynx abnormal erythema; no edema and no exudates Eye: COMMON NORMALS: Equal, round and reactive pupils present and EOMs intact bilaterally PUPIL: Yes Equal, round and reactive pupils present Neck/C-Spine: GENERAL: Yes trachea midline Chest: CHEST: Yes Symmetrical chest wall rise Resp: COMMON NORMALS: normal respiratory effort, No retractions, No use of accessory muscles and clear to auscultation bilaterally AUSCULTATION: clear to auscultation bilaterally Cardio: COMMON NORMALS: regular rate and regular rhythm RATE: regular rate RHYTHM: regular rhythm GI: COMMON NORMALS: Normal to inspection, nondistended, normoactive bowel sounds present Extremity: COMMON NORMALS: no pedal edema Neuro: ISABEL COMA SCALE: document GCS findings Isabel coma scale eye opening: Spontaneous Isabel coma scale verbal response: Orientated Isabel coma scale motor response: Obey commands Isabel coma scale total score: 15 SENSORY EXAM: Yes extremities (intact) Psych: COMMON NORMALS: speech normal SPEECH: Yes normal speech Skin: COMMON NORMALS: no rashes or lesions noted GENERAL SKIN EXAM: no rashes or lesions noted Course Vital Signs: Vital signs: Vital Signs Temperature 98.1 F 08/18/24 23:13 Pulse Rate 88 08/18/24 23:13 Respiratory Rate 17 08/18/24 23:13 Blood Pressure 122/80 08/18/24 23:13 Pulse Oximetry 100 08/18/24 23:13 Oxygen Delivery Me thod Room Air 08/18/24 23:13 MDM - URI/Sore Throat Medical Decision Making Swabs for COVID, flu, RSV and strep are all negative. She is not . She is given a dose of dexamethasone for symptoms, as well as antiemetic. She will go home on antiemetic. Lab Data Laboratory Results HCG, Qual Negative (Negative) 08/19/24 01:09 Coronavirus (PCR) Negative (Negative) 08/19/24 01:05 Influenza A (PCR) Negative (Negative) 08/19/24 01:05 Influenza Type B (PCR) Negative (Negative) 08/19/24 01:05 RSV (PCR) Negative (Negative) 08/19/24 01:05 Group A Strep Rapid Negative (Negative) 08/19/24 01:05 No radiology studies performed this visit Discharge Plan Discharge Patient Disposition: Home Clinical Impression: Upper respiratory infection Condition: Stable Prescriptions: New ondansetron 4 mg tablet,disintegrating 4 mg PO Q6H PRN (Reason: nausea and vomiting) Qty: 14 0RF Discharge Orders: Discharge ED (Routine); Ordered 08/19/24 Ordered By: Micheal Ahumada Patient Instructions: Upper Respiratory Infection (ED), Opioid Safety, Pain Management Coding Level of Care Code ED Supply Clerk for Vilma Suazo
[2024-08-19 01:45] LABS: HCG Qualitative Urine. Negative (Negative)
[2024-08-19 01:48] LABS: Covid PCR NEGATIVE (Negative); Influenza A NEGATIVE (Negative); Influenza B NEGATIVE (Negative); Respiratory Syncytial Virus Ce NEGATIVE (Negative)
[2024-08-19] MEDS: HYDROcodone-APAP 7.5-325 mg/15 mL UDC PO (02:03)
[2024-08-19] MEDS: dexamethasone 4 mg Tablet 10 MG PO (02:03)
[2024-08-19] MEDS: ondansetron 4 MG Tablet 8 MG PO (02:03)
== END 2024-08-19 02:05 | disposition home or self-care (01) ==
PROVIDERS: Emergency Provider Emergency Medicine
DX: J06.9 Acute upper respiratory infection, unspecified (principal); Z11.52 Encounter for screening for COVID-19
CPT/HCPCS: 0241U; 81025; 87081; 87880; 99283; J8540; Q0162

== ENCOUNTER → 2024-08-23 15:10 | Outpatient (BNVA) | payer MEDICAID, SELFPAY ==
[2023-11-25 12:41] VITALS: BP 123/81; BMI 32.5
== END ==
PROVIDERS: Visit Provider Nurse Practitioner Women's Health
DX: R10.2 Pelvic and perineal pain (principal); N83.202 Unspecified ovarian cyst, left side; N83.201 Unspecified ovarian cyst, right side
CPT/HCPCS: 76830

== ENCOUNTER 2024-08-29 16:13 | Emergency (ER) | payer MEDICAID, SELFPAY ==
[2023-11-25 12:41] VITALS: BP 123/81; BMI 32.5
[2024-08-29 16:27] VITALS: BP 144/91; PULSE 88; RESP 16; TEMP 37.1; O2SAT 98; BMI 32.5
--- NOTE | 2024-08-29 16:40 | ED_ITS ---
HPI - Female Genitourinary 2 General: Chief complaint: Vaginal Bleeding Stated complaint: vaginal bleeding Time Seen by Provider: 08/29/24 16:33 Source: patient Mode of arrival: ambulatory Limitations: no limitations History of Present Illness: 23-year-old female states she has had he hernesto vaginal bleeding over the last 2 days. She states that she has been trying to get is unsure if she is but states it is time for her menstruation has had heavy periods in the past but states has not had this heavier bleeding in the past. She denies any fevers denies any vomiting or diarrhea. Associated symptoms: Reports abdominal pain; Deny headache(s) or nausea Date of Last Menstrual Period: 08/29/24 Related Data Previous Rx's Medication Instructions Recorded ondansetron 4 mg disintegrating 4 mg PO Q6H PRN nausea and 08/19/24 tablet vomiting #14 tabs Allergies Allergy/AdvReac Type Severity Reaction Status Date / Time No Known Allergies Allergy Verified 08/18/24 23:16 Review of Systems 2 Const: Denies: fever(s), chills, body aches or change in appetite ENMT: Denies: throat pain or dental pain Card: Denies: chest pain Resp: Denies: dyspnea GI: Reports: abdominal pain; Denies: nausea, vomiting or diarrhea : Reports: vaginal bleeding Musc: Denies: neck pain or back pain Skin/Breast: Denies: rash Neuro: Denies: headache(s) PFSH ED 2 PFSH: Medical History Psychiatric care Chronic post-traumatic stress disorder (PTSD) Anxiety and depression No pertinent past medical history neghx: htn,dm,thyroid,dvt/pe,herpes -----denies partner with herpes Scoliosis Fibromyalgia Surgical History History of hysteroscopy (~04/2021) with D&C-- uterine mass; pathology no atypia. Adenomyosis. Performed by [facility]. Hx of appendectomy (~2014) History of tonsillectomy and adenoidectomy (~2012) Family History Family/Other Breast cancer Maternal Aunt x2-- dx age unknown Father Diabetes Mother Hypertension Thyroid disease Grandmother Stroke Maternal and Paternal Grandfather Stroke Maternal Denies family history of Colon cancer Ovarian cancer Heart disease Uterine cancer Social History Smoking and tobacco/nicotine status: never used tobacco/nicotine Female Reproductive History: Date of last menstrual period: 08/29/24 Para: 2 Spontaneous abortions: Yes (X2) Physical Exam 2 Const: COMMON NORMALS: no acute distress, patient oriented x3 and healthy appearing HENMT: COMMON NORMALS: normocephalic and atraumatic HEAD & SCALP: n ormocephalic and atraumatic Neck/C-Spine: COMMON NORMALS: full ROM and supple Chest: COMMONS NORMALS: normal inspection of the chest Resp: COMMON NORMALS: normal respiratory effort Cardio: COMMON NORMALS: regular rate, regular rhythm and No murmurs present (Cardio) RATE: regular rate RHYTHM: regular rhythm GI: COMMON NORMALS: Normal to inspection, nondistended, normoactive bowel sounds present, Soft to palpation, non-tender and no masses PALPATION: Yes Soft to palpation Extremity: COMMON NORMALS: normal to inspection and full ROM Neuro: COMMON NORMALS: patient oriented x3, moves all extremities and no focal motor deficits Psych: COMMON NORMALS: mental status grossly normal, Normal thought process present and cooperative THOUGHT PROCESS: Normal thought process present Skin: COMMON NORMALS: no rashes or lesions noted and no wounds GENERAL SKIN EXAM: no rashes or lesions noted Course 2 Vital Signs: Vital signs: Vital Signs Temperature 98.7 F 08/29/24 16:27 Pulse Rate 88 08/29/24 16:27 Respiratory Rate 16 08/29/24 16:27 Blood Pressure 144/91 08/29/24 16:27 Pulse Oximetry 98 08/29/24 16:27 Oxygen Delivery Me thod Room Air 08/29/24 16:27 MDM - Female Medical Decision Making Patient presents here with vaginal bleeding she has been well-appearing here her blood counts normal she had a history of heavy vaginal bleeding states she had a recent ultrasound has follow-up with her OB on the she is to follow-up as scheduled return if worsening Medical Records I reviewed the patient's medical records. Lab Data I reviewed the patient's lab results. 08/29/24 17:18 08/29/24 17:18 Laboratory Results WBC 11.41 10^3/uL (3.29-11.43) 08/29/24 17:18 RBC 4.46 10^6/uL (3.85-5.65) 08/29/24 17:18 Hgb 12.50 g/dL (11.27-16.99) 08/29/24 17:18 Hct 39.0 % (36-47) 08/29/24 17:18 MCV 87.4 fl (85-98) 08/29/24 17:18 MCH 28.0 pg (27-33) 08/29/24 17:18 MCHC 32.1 g/dL (30-55) 08/29/24 17:18 RDW 13.4 % (12.1-15.1) 08/29/24 17:18 Plt Count 273 10^3/cmm (157-399) 08/29/24 17:18 MPV 12.1 fL (7.4-10.4) H 08/29/24 17:18 Neut % (Auto) 65.9 % 08/29/24 17:18 Lymph % (Auto) 24.8 % 08/29/24 17:18 [place] % (Auto) 6.6 % 08/29/24 17:18 Eos % (Auto) 1.6 % 08/29/24 17:18 Baso % (Auto) 0.8 % 08/29/24 17:18 Neut # (Auto) 7.53 10^3/uL (1.8-7.7) 08/29/24 17:18 Lymph # (Auto) 2.8 10^3/uL (0.8-4.8) 08/29/24 17:18 [place] # (Auto) 0.8 10^3/uL (0.2-0.9) 08/29/24 17:18 Eos # (Auto) 0.2 10^3/uL (0.0-0.8) 08/29/24 17:18 Baso # (Auto) 0.1 10^3/uL (0.0-0.1) 08/29/24 17:18 Nucleated RBC % (auto) 0 % 08/29/24 17:18 Nucleated RBCs # 0.0 /100WBC 08/29/24 17:18 PT 13.20 SECONDS (12.1-14.9) 08/29/24 17:18 INR 0.97 (0.8-1.2) 08/29/24 17:18 Sodium 139 mmol/L (136-145) 08/29/24 17:18 Potassium 3.5 mmol/L (3.5-5.1) 08/29/24 17:18 Chloride 107 mmol/L (98-107) 08/29/24 17:18 Carbon Dioxide 21 mmol/L (22-29) L 08/29/24 17:18 Anion Gap 14.5 (5-19) 08/29/24 17:18 BUN 13 mg/dL (6-20) 08/29/24 17:18 Creatinine 0.6 mg/dL (0.5-0.9) 08/29/24 17:18 GFR Calculation 122.8 mL/min (90-130) 08/29/24 17:18 Glucose 101 mg/dL (65-115) 08/29/24 17:18 Calculated Osmolality 288 mOsm/kg (285-295) 08/29/24 17:18 Calcium 9.1 mg/dL (8.5-10.5) 08/29/24 17:18 Total Bilirubin 0.2 mg/dL (0.15-1.2) 08/29/24 17:18 AST 11 U/L (0-32) 08/29/24 17:18 ALT 10 U/L (0-33) 08/29/24 17:18 Alkaline Phosphatase 66 U/L (35-105) 08/29/24 17:18 Total Protein 7.5 g/dL (6.6-8.7) 08/29/24 17:18 Albumin 4.2 g/dL (3.5-5.2) 08/29/24 17:18 Globulin 3.3 g/dL (1.3-4.6) 08/29/24 17:18 HCG, Qual Negative (Negative) 08/29/24 17:18 Ser , Semi-Qnt 1.00 mIU/mL 08/29/24 17:18 All radiology interpretation(s) finalized by discharge Discharge Plan Discharge Patient Disposition: Home Clinical Impression: Vaginal bleeding Condition: Stable Prescriptions: No Action ondansetron 4 mg tablet,disintegrating 4 mg PO Q6H PRN (Reason: nausea and vomiting) Qty: 14 0RF Discharge Orders: Discharge ED (Routine); Ordered 08/29/24 Ordered By: Geovanni Syed Discharge Diet: Advance as tolerated Discharge Activity: Resume usual activity Patient Instructions: Abnormal (Dysfunctional) Uterine Bleeding (ED) Coding Level of Care Code ED Computer Analyst Supervisor for Vilma Suazo
[2024-08-29 17:59] LABS: Basophils # 0.1 10^3/uL (0.0-0.1); Basophils % 0.8 %; Eosinophils # 0.2 10^3/uL (0.0-0.8); Eosinophils % 1.6 %; Lymphocytes # 2.8 10^3/uL (0.8-4.8); Lymphocytes % 24.8 %; Mean Corpuscular HGB Conc 32.1 g/dL (30-55); Mean Corpuscular Volume 87.4 fl (85-98); Mean Platelet Volume 12.1 fL (7.4-10.4); Monocytes # 0.8 10^3/uL (0.2-0.9); Monocytes % 6.6 %; Neutrophils # 7.53 10^3/uL (1.8-7.7); Neutrophils % 65.9 %; Nucleated Red Blood Cells % 0 %; Platelet Count 273 10^3/cmm (157-399); Red Blood Count 4.46 10^6/uL (3.85-5.65); Red Cell Distribution Width 13.4 % (12.1-15.1); White Blood Count 11.41 10^3/uL (3.29-11.43)
[2024-08-29 18:06] LABS: INR 0.97 (0.8-1.2)
[2024-08-29 18:17] LABS: Alanine Aminotransferase 10 U/L (0-33); Albumin Level 4.2 g/dL (3.5-5.2); Alkaline Phosphatase 66 U/L (35-105); Anion Gap 14.5 (5-19); Aspartate Amino Transferase 11 U/L (0-32); Blood Urea Nitrogen 13 mg/dL (6-20); Calcium 9.1 mg/dL (8.5-10.5); Carbon Dioxide 21 mmol/L (22-29); Chloride 107 mmol/L (98-107); Creatinine Clr Calc Pharmacy 181.7618; Globulin 3.3 g/dL (1.3-4.6); Glomerular Filtration Rate 122.8 mL/min (90-130); Glucose 101 mg/dL (65-115); Osmolality Calculated 288 mOsm/kg (285-295); Potassium 3.5 mmol/L (3.5-5.1); Sodium 139 mmol/L (136-145); Total Bilirubin 0.2 mg/dL (0.15-1.2); Total Protein 7.5 g/dL (6.6-8.7)
[2024-08-29 18:25] LABS: HCG, Serum Qual Negative (Negative)
[2024-08-29] MEDS: ondansetron 2 mg/ML SDV 2 mL 4 MG IVP (18:30)
[2024-08-29] MEDS: morphine 4 mg/mL SDV 1 mL IVP (18:31)
[2024-08-29 18:34] VITALS: BP 133/92; PULSE 74; O2SAT 98
[2024-08-29 18:53] VITALS: BP 133/92; PULSE 77; O2SAT 99
== END 2024-08-29 18:57 | disposition home or self-care (01) ==
PROVIDERS: Emergency Provider Emergency Medicine
DX: N93.9 Abnormal uterine and vaginal bleeding, unspecified (principal)
CPT/HCPCS: 36415; 80053; 84702; 84703; 85025; 85610; 96374; 96375; 99284; J2270; J2405

== ENCOUNTER → 2024-09-11 15:33 | Outpatient (BNVA) | payer MEDICAID, SELFPAY ==
[2023-11-25 12:41] VITALS: BP 123/81; BMI 32.5
== END ==
PROVIDERS: Visit Provider Nurse Practitioner Women's Health
DX: Z31.9 Encounter for procreative management, unspecified (principal)
CPT/HCPCS: 82306; 83520; 84402; 84403; 84443

== ENCOUNTER 2024-09-18 17:57 | Emergency (ER) | payer MEDICAID, SELFPAY ==
[2023-11-25 12:41] VITALS: BP 123/81; BMI 32.5
[2024-09-18 18:10] VITALS: BP 129/80; PULSE 76; TEMP 36.7; O2SAT 99; BMI 34.0
--- NOTE | 2024-09-18 18:36 | CTR_ITS ---
PROCEDURE INFORMATION: Exam: CT Orbits With Contrast Exam date and time: 09/18/2024 8:32 PM Age: 23 years old Clinical indication: Eye pain; Right; Additional info: Severe right eye pain with eom, loss of vision TECHNIQUE: Imaging protocol: Computed tomography of the orbits with contrast. Radiation optimization: All CT scans at this facility use at least one of these dose optimization techniques: automated exposure control; mA and/or kV adjustment per patient size (includes targeted exams where dose is matched to clinical indication); or iterative reconstruction. Contrast material: OMNI 350; Contrast volume: 100 ml; Contrast route: INTRAVENOUS (IV); COMPARISON: No relevant prior studies available. RADIATION DOSE METRICS: Total DLP (mGy-cm): 331.28 FINDINGS: Paranasal sinuses: Normal. No air-fluid levels. Orbital cavities: Orbits are normal. 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 Globes are unremarkable. Bones/joints: No acute fracture. Soft tissues: No significant facial soft tissue swelling. CT/CT orbit BI w con [id number] IMPRESSION: No acute findings.
--- NOTE | 2024-09-18 18:39 | ED_ITS ---
HPI - Eye Problem 2 General: Chief complaint: Eye Problems Stated complaint: R eye and head pain Time Seen by Provider: 09/18/24 18:19 Source: patient Mode of arrival: ambulatory Limitations: no limitations History of Present Illness: Patient is a 23-year-old female who presents the emergency department complaining of severe right eye pain beginning yesterday. She states she was using liquid eyeliner when she got a little bit in her eye, but has had severe worsening of pain since. Also was noting visual loss as well as severe retro- orbital pain. States it has been constant since onset, she is irrigated profusely but this has not helped at all. She is noting some periorbital redness and swelling. No fever, nausea/vomiting, or other symptoms at this time. Vital stable. MD chief complaint: eye pain and vision change Onset (ago): day(s) Onset description: sudden Duration: constant Location: right eye Eye Symptoms: pain and decreased vision Mechanism: direct trauma and chemical exposure Severity: severe If Pain, Quality: sharp Associated symptoms: Reports headache(s); Denies fever(s), nausea, neck pain or vomiting Treatments Prior to Arrival: irrigated eye Related Data Previous Rx's Medication Instructions Recorded cholecalciferol (vitamin D3) 25 25 mcg PO DAILY #90 caps 09/18/24 mcg (1,000 unit) capsule doxycycline hyclate 100 mg capsule 100 mg PO BID 7 days #14 caps 09/18/24 Allergies Allergy/AdvReac Type Severity Reaction Status Date / Time No Known Allergies Allergy Verified 09/18/24 18:15 Review of Systems 2 General: Reports: 10 or more systems reviewed and unremarkable except in HPI and below Const: Denies: fever(s), chills or fatigue Eyes: Reports: change in vision, eye discomfort and eye redness ENMT: Denies: throat pain, ear or mastoid pain or nasal discharge Card: Denies: chest pain, palpitations, swelling of feet/ankles or lightheadedness Resp: Denies: dyspnea, productive cough or wheezing GI: Denies: abdominal pain, nausea, vomiting, diarrhea or constipation : Denies: flank pain, difficulty voiding, dysuria or urinary frequency Musc: Denies: neck pain, back pain or joint pain Skin/Breast: Denies: rash Neuro: Reports: headache(s); Denies: numbness in extremities or weakness in extremities [facility] ED 2 PFSH: Medical History Psychiatric care Chronic post-traumatic stress disorder (PTSD) Anxiety and depression No pertinent past medical history neghx: htn,dm,thyroid,dvt/pe,herpes -----denies partner with herpes Scoliosis Fibromyalgia Surgical History History of hysteroscopy (~04/2021) with D&C-- uterine mass; pathology no atypia. Adenomyosis. Performed by Zarina. Hx of appendectomy (~2014) History of tonsillectomy and adenoidectomy (~2012) Family History Family/Other Breast cancer Maternal Aunt x2-- dx age unknown Father Diabetes Mother Hypertension Thyroid disease Grandmother Stroke Maternal and Paternal Grandfather Stroke Maternal Denies family history of Colon cancer Ovarian cancer Heart disease Uterine cancer Social History Smoking and tobacco/nicotine status: never used tobacco/nicotine Female Reproductive History: Para: 2 Spontaneous abortions: Yes (X2) Physical Exam 2 Const: COMMON NORMALS: no acute distress, patient oriented x3 and no limitations GENERAL APPEARANCE: cooperative, comfortable and well developed ORIENTATION/CONSCIOUSNESS: Yes awake, Yes oriented to person and Yes oriented to time HENMT: COMMON NORMALS: normocephalic, atraumatic and hearing grossly normal bilaterally HEAD & SCALP: normocephalic and atraumatic Eye: COMMON NORMALS: Equal, round and reactive pupils present PUPIL: Yes Equal, round and reactive pupils present OTHER: Severe pain with extraocular movements of the right eye. There is some mild edema and erythema periorbitally. Conjunctive appears normal, as well as the sclera. Inversion of the eyelids does not reveal any signs of foreign body. Severe tenderness to palpation periorbitally. Endorsing acute vision changes of the right eye. Neck/C-Spine: COMMON NORMALS: full ROM, supple and no JVD Resp: COMMON NORMALS: normal respiratory effort, No retractions, No use of accessory muscles and clear to auscultation bilaterally AUSCULTATION: clear to auscultation bilaterally Cardio: COMMON NORMALS: no JVD, regular rate, regular rhythm, No clicks present (Cardio), No murmurs present (Cardio) and No rub (Cardio) RATE: r egular rate RHYTHM: regular rhythm Extremity: COMMON NORMALS: normal to inspection, full ROM and capillary refill normal Neuro: COMMON NORMALS: patient oriented x3, moves all extremities, no focal motor deficits and no sensory deficits noted SENSORIUM/ORIENTATION: Yes oriented to person and Yes oriented to time Skin: COMMON NORMALS: no rashes or lesions noted GENERAL SKIN EXAM: no rashes or lesions noted Course 2 Vital Signs: Vital signs: Vital Signs Temperature 98.1 F 09/18/24 18:10 Pulse Rate 76 09/18/24 18:10 Blood Pressure 129/80 09/18/24 18:10 Pulse Oximetry 99 09/18/24 18:10 Oxygen Delivery Me thod Room Air 09/18/24 18:10 MDM - Eye Problem Medical Decision Making Patient had gotten some liquid eyeliner in her eye last night, although on exam her conjunctivowas completely normal with no injection, inversion of her eyelids did not reveal any signs of foreign body, stye, chalazion. She did have pain with extraocular movements, and was endorsing visual changes so wanted to rule out orbital cellulitis or other acute emergent findings with her eye. CT was negative, her blood work was normal. Multiple times she was rechecked and noted to be playing on her phone without any distress. She was given tetracaine drops and irrigated here in the emergency department, states the tetracaine essentially made her pain to a 0. Although no emergent findings at this time, gave strict return precautions and will refer her to ophthalmology to follow-up if she continues to have issues. She is comfortable with this plan, discharge at this time. Lab Data 09/18/24 18:45 09/18/24 18:[address] 09/18/24 18:36 IMPRESSION: No acute findings. Laboratory Results WBC 9.99 10^3/uL (3.29-11.43) 09/18/24 18:45 RBC 4.28 10^6/uL (3.85-5.65) 09/18/24 18:45 Hgb 12.10 g/dL (11.27-16.99) 09/18/24 18:45 Hct 37.0 % (36-47) 09/18/24 18:45 MCV 86.4 fl (85-98) 09/18/24 18:45 MCH 28.3 pg (27-33) 09/18/24 18:45 MCHC 32.7 g/dL (30-55) 09/18/24 18:45 RDW 13.2 % (12.1-15.1) 09/18/24 18:45 Plt Count 294 10^3/cmm (157-399) 09/18/24 18:45 MPV 11.6 fL (7.4-10.4) H 09/18/24 18:45 Neut % (Auto) 69.1 % 09/18/24 18:45 Lymph % (Auto) 22.2 % 09/18/24 18:45 [place] % (Auto) 6.6 % 09/18/24 18:45 Eos % (Auto) 1.2 % 09/18/24 18:45 Baso % (Auto) 0.7 % 09/18/24 18:45 Neut # (Auto) 6.90 10^3/uL (1.8-7.7) 09/18/24 18:45 Lymph # (Auto) 2.2 10^3/uL (0.8-4.8) 09/18/24 18:45 [place] # (Auto) 0.7 10^3/uL (0.2-0.9) 09/18/24 18:45 Eos # (Auto) 0.1 10^3/uL (0.0-0.8) 09/18/24 18:45 Baso # (Auto) 0.1 10^3/uL (0.0-0.1) 09/18/24 18:45 Nucleated RBC % (auto) 0 % 09/18/24 18:45 Nucleated RBCs # 0.0 /100WBC 09/18/24 18:45 Sodium 137 mmol/L (136-145) 09/18/24 18:45 Potassium 3.8 mmol/L (3.5-5.1) 09/18/24 18:45 Chloride 103 mmol/L (98-107) 09/18/24 18:45 Carbon Dioxide 23 mmol/L (22-29) 09/18/24 18:45 Anion Gap 14.8 (5-19) 09/18/24 18:45 BUN 15 mg/dL (6-20) 09/18/24 18:45 Creatinine 0.6 mg/dL (0.5-0.9) 09/18/24 18:45 GFR Calculation 122.8 mL/min (90-130) 09/18/24 18:45 Glucose 115 mg/dL (65-115) 09/18/24 18:45 Calculated Osmolality 286 mOsm/kg (285-295) 09/18/24 18:45 Calcium 9.4 mg/dL (8.5-10.5) 09/18/24 18:45 Total Bilirubin 0.2 mg/dL (0.15-1.2) 09/18/24 18:45 AST 13 U/L (0-32) 09/18/24 18:45 ALT 11 U/L (0-33) 09/18/24 18:45 Alkaline Phosphatase 67 U/L (35-105) 09/18/24 18:45 Total Protein 7.8 g/dL (6.6-8.7) 09/18/24 18:45 Albumin 4.3 g/dL (3.5-5.2) 09/18/24 18:45 Globulin 3.5 g/dL (1.3-4.6) 09/18/24 18:45 All radiology interpretation(s) finalized by discharge Discharge Plan Discharge Patient Disposition: Home Clinical Impression: Acute pain in right eye Condition: Stable Prescriptions: No Action cholecalciferol (vitamin D3) 25 mcg (1,000 unit) capsule 25 mcg PO DAILY Qty: 90 0RF Rx Instructions: take one capsule daily doxycycline hyclate 100 mg capsule 100 mg PO BID 7 Days Qty: 14 0RF Discharge Orders: Discharge ED (Routine); Ordered 09/18/24 Ordered By: Weston Arredondo Patient Instructions: Eye Pain (ED) Activity Restrictions/Additional Instructions: Follow-up with ophthalmology. Continue irrigating eye at home, tetracaine drops. Return with any worsening of pain, high fevers, or other concerning symptoms. Coding Level of Care Code ED Clerical Receptionist for Vilma Suazo
[2024-09-18] MEDS: tetracaine 0.5% Op Soln 4 mL Btl 1 DROP EYE-RIGHT (18:49)
[2024-09-18 18:54] LABS: Basophils # 0.1 10^3/uL (0.0-0.1); Basophils % 0.7 %; Eosinophils # 0.1 10^3/uL (0.0-0.8); Eosinophils % 1.2 %; Lymphocytes # 2.2 10^3/uL (0.8-4.8); Lymphocytes % 22.2 %; Mean Corpuscular HGB Conc 32.7 g/dL (30-55); Mean Corpuscular Hemoglobin 28.3 pg (27-33); Mean Corpuscular Volume 86.4 fl (85-98); Mean Platelet Volume 11.6 fL (7.4-10.4); Monocytes # 0.7 10^3/uL (0.2-0.9); Monocytes % 6.6 %; Neutrophils % 69.1 %; Nucleated Red Blood Cells % 0 %; Platelet Count 294 10^3/cmm (157-399); Red Blood Count 4.28 10^6/uL (3.85-5.65); Red Cell Distribution Width 13.2 % (12.1-15.1); White Blood Count 9.99 10^3/uL (3.29-11.43)
--- NOTE | 2024-09-18 18:54 | PC.NURSE ---
Eye irrigated with normal saline flushes x 8. pt tolerated well.
[2024-09-18 19:23] LABS: Alanine Aminotransferase 11 U/L (0-33); Albumin Level 4.3 g/dL (3.5-5.2); Alkaline Phosphatase 67 U/L (35-105); Anion Gap 14.8 (5-19); Aspartate Amino Transferase 13 U/L (0-32); Blood Urea Nitrogen 15 mg/dL (6-20); Calcium 9.4 mg/dL (8.5-10.5); Carbon Dioxide 23 mmol/L (22-29); Chloride 103 mmol/L (98-107); Globulin 3.5 g/dL (1.3-4.6); Glomerular Filtration Rate 122.8 mL/min (90-130); Glucose 115 mg/dL (65-115); Osmolality Calculated 286 mOsm/kg (285-295); Potassium 3.8 mmol/L (3.5-5.1); Sodium 137 mmol/L (136-145); Total Bilirubin 0.2 mg/dL (0.15-1.2); Total Protein 7.8 g/dL (6.6-8.7)
[2024-09-18] MEDS: iohexol 350 mg/mL 500 mL Btl (per mL) IV (20:40)
--- NOTE | 2024-09-21 10:02 | DCPLANNER ---
faxed packet to emma pelayo
== END 2024-09-18 21:53 | disposition home or self-care (01) ==
PROVIDERS: Emergency Provider Physician Assistant
DX: H57.11 Ocular pain, right eye (principal)
CPT/HCPCS: 36415; 70481; 80053; 85025; 99285

== ENCOUNTER → 2025-02-06 08:43 | Outpatient (BNVA) | payer MEDICAID, SELFPAY ==
[2023-11-25 12:41] VITALS: BP 123/81; BMI 32.5
== END ==
PROVIDERS: Visit Provider Nurse Practitioner Women's Health
DX: N91.2 Amenorrhea, unspecified (principal); Z32.01 Encounter for pregnancy test, result positive
CPT/HCPCS: 81025; 84702

== ENCOUNTER → 2025-02-11 10:06 | Outpatient (BNVA) | payer MEDICAID, SELFPAY ==
[2023-11-25 12:41] VITALS: BP 123/81; BMI 32.5
== END ==
PROVIDERS: Visit Provider Nurse Practitioner Women's Health
DX: O26.891 Other specified pregnancy related conditions, first trimester (principal); Z3A.01 Less than 8 weeks gestation of pregnancy
CPT/HCPCS: 76817

== ENCOUNTER → 2025-03-06 13:51 | Outpatient (BNVA) | payer MEDICAID, SELFPAY ==
[2023-11-25 12:41] VITALS: BP 123/81; BMI 32.5
== END ==
PROVIDERS: Visit Provider Nurse Practitioner Women's Health
DX: Z34.90 Encounter for supervision of normal pregnancy, unspecified, unspecified trimester (principal)
CPT/HCPCS: 80307; 82950; 84315; 84443; 85025; 86592; 86762; 86803; 87086; 87340; 87491; 87591; 87661; 87806

== ENCOUNTER → 2025-03-27 10:31 | Outpatient (BNVA) | payer MEDICAID, SELFPAY ==
[2023-11-25 12:41] VITALS: BP 123/81; BMI 32.5
== END ==
PROVIDERS: Visit Provider Obstetrics & Gynecology
DX: Z34.90 Encounter for supervision of normal pregnancy, unspecified, unspecified trimester (principal)
CPT/HCPCS: 84315; 87624

== ENCOUNTER → 2025-04-02 08:15 | Outpatient (BNVA) | payer MEDICAID, SELFPAY ==
[2023-11-25 12:41] VITALS: BP 123/81; BMI 32.5
== END ==
PROVIDERS: Visit Provider Obstetrics & Gynecology
DX: Z34.82 Encounter for supervision of other normal pregnancy, second trimester (principal)
CPT/HCPCS: 82951; 82952; 85025; 86850; 86900

== ENCOUNTER 2025-04-15 12:48 | Outpatient (CLI) | payer MEDICAID, SELFPAY ==
[2023-11-25 12:41] VITALS: BP 123/81; BMI 32.5
--- NOTE | 2025-04-15 12:54 | XR_ITS ---
WS: [id number] XR knee RT 3V* [id number] REASON FOR EXAM: right knee injury FINDINGS: No joint effusion identified. No fracture. Tibial plateau and patella are intact. Joint space is intact and relatively well preserved. XR/XR knee RT 3V* [id number] IMPRESSION: No significant bone or joint abnormality.
== END 2025-04-15 12:49 | disposition home or self-care (01) ==
LOC: RAD 12:52
DX: S89.91XA Unspecified injury of right lower leg, initial encounter (principal); Z34.90 Encounter for supervision of normal pregnancy, unspecified, unspecified trimester
CPT/HCPCS: 73562; 82105; 84315

== ENCOUNTER → 2025-05-15 09:37 | Outpatient (BNVA) | payer MEDICAID, SELFPAY ==
[2023-11-25 12:41] VITALS: BP 123/81; BMI 32.5
== END ==
PROVIDERS: Visit Provider Obstetrics & Gynecology
DX: O26.892 Other specified pregnancy related conditions, second trimester (principal); Z3A.20 20 weeks gestation of pregnancy
CPT/HCPCS: 76805

== ENCOUNTER 2025-05-29 12:45 | Outpatient (CLI) | payer MEDICAID, SELFPAY ==
[2023-11-25 12:41] VITALS: BP 123/81; BMI 32.5
[2025-05-29] VITALS (13 sets, daily range): BP systolic 116–144; BP diastolic 58–83; PULSE 80–109; RESP 17; O2SAT 98; BMI 38.6
[2025-05-29 13:25] LABS: Glucose Urine UA Negative (Normal); Nitrate Urine Negative (Negative); Specific Gravity, Urine 1.021 (1.005-1.030)
== END 2025-05-29 15:43 | disposition home or self-care (01) ==
LOC: OPOB 12:48 → OBGYN 12:49
PROVIDERS: Visit Provider Obstetrics & Gynecology
DX: O26.899 Other specified pregnancy related conditions, unspecified trimester (principal); Z3A.00 Weeks of gestation of pregnancy not specified; R51.9 Headache, unspecified; R42 Dizziness and giddiness; R11.0 Nausea
CPT/HCPCS: 81001; 99211; J9999

== ENCOUNTER → 2025-07-11 10:11 | Outpatient (BNVA) | payer MEDICAID, SELFPAY ==
[2023-11-25 12:41] VITALS: BP 123/81; BMI 32.5
== END ==
PROVIDERS: Visit Provider Obstetrics & Gynecology
DX: O26.899 Other specified pregnancy related conditions, unspecified trimester (principal); Z3A.00 Weeks of gestation of pregnancy not specified; Z67.91 Unspecified blood type, Rh negative
CPT/HCPCS: 82950; 84315; 85025

== ENCOUNTER → 2025-07-25 13:43 | Outpatient (BNVA) | payer MEDICAID, SELFPAY ==
[2023-11-25 12:41] VITALS: BP 123/81; BMI 32.5
== END ==
PROVIDERS: Visit Provider Obstetrics & Gynecology
DX: O26.899 Other specified pregnancy related conditions, unspecified trimester (principal); Z3A.00 Weeks of gestation of pregnancy not specified; Z67.91 Unspecified blood type, Rh negative
CPT/HCPCS: 84315

== ENCOUNTER 2025-07-31 16:06 | Outpatient (CLI) | payer MEDICAID, SELFPAY ==
[2023-11-25 12:41] VITALS: BP 123/81; BMI 32.5
--- NOTE | 2025-07-31 16:11 | MR_ITS ---
WS: [id number] MRI BRAIN WITHOUT CONTRAST HISTORY: PSEUDOPAPILLEDEMA OF THE OPTIC DISC COMPARISON: None available. TECHNIQUE: Diffusion imaging, multiplanar T1, T2 and FLAIR imaging obtained. No evidence for acute infarct or hemorrhage. Davis-white matter differentiation is normal. No remote or acute infarcts are volume loss. Ventricles and extra-axial spaces are normal. No inferior displacement of cerebellar tonsils. The sella turcica and pituitary gland are unremarkable. Dural venous sinuses and [place] of [place] demonstrate no abnormality on this unenhanced studies. Paranasal sinuses: Small mucous retention cysts in the floors of the maxillary sinuses. No air-fluid levels. Mastoid air cells: Normal. Calvarium and scalp: Intact. MR/MR head wo con* [id number] IMPRESSION: 1. Unremarkable noncontrast MRI brain. 2. No acute hemorrhage or infarct. No hydrocephalus. 3. For more focused evaluation of the optic nerves and evaluate for papilledem a MRI orbits with and without contrast can be obtained.
--- NOTE | 2025-07-31 16:12 | MR_ITS ---
WS: [id number] MR VENOGRAPHY HEAD 3-D noncontrast imaging performed through the cerebral veins. All imaging is reviewed. HISTORY: PSEUDOPAPILLEDEMA OF THE OPTIC DISC COMPARISON: None available. Excellent demonstration of the dural venous sinuses and cerebral veins. There are no filling defects to suggest acute or chronic thrombus. Smaller caliber LEFT transverse sinus is a normal variant. No filling defects or thrombus. Normal jugular veins. Superior sagittal sinus, straight sinus and transverse sinuses are all patent with no significant thrombus. MR/[place] [id number] IMPRESSION: Normal MR venogram cerebral veins.
== END 2025-07-31 16:07 | disposition home or self-care (01) ==
LOC: RAD 16:06
PROVIDERS: PCP General Practice; Visit Provider General Practice
DX: H47.339 Pseudopapilledema of optic disc, unspecified eye (principal); J34.89 Other specified disorders of nose and nasal sinuses
CPT/HCPCS: 70544; 70551

== ENCOUNTER → 2025-08-22 10:13 | Outpatient (BNVA) | payer MEDICAID, SELFPAY ==
[2023-11-25 12:41] VITALS: BP 123/81; BMI 32.5
== END ==
PROVIDERS: Visit Provider Obstetrics & Gynecology
DX: O26.899 Other specified pregnancy related conditions, unspecified trimester (principal); Z3A.34 34 weeks gestation of pregnancy; Z67.91 Unspecified blood type, Rh negative
CPT/HCPCS: 84315; 85025; 86850

== ENCOUNTER 2025-08-23 22:08 | Outpatient (CLI) | payer MEDICAID, SELFPAY ==
[2023-11-25 12:41] VITALS: BP 123/81; BMI 32.5
[2025-08-23] VITALS (10 sets, daily range): BP systolic 120–170; BP diastolic 69–89; PULSE 67–113; O2SAT 99; BMI 40.3
[2025-08-23 23:02] LABS: Hematocrit 35.1 % (36-47); Hemoglobin 11.10 g/dL (11.27-16.99); Mean Corpuscular HGB Conc 31.6 g/dL (30-55); Mean Corpuscular Hemoglobin 26.9 pg (27-33); Mean Corpuscular Volume 85.2 fl (85-98); Nucleated Red Blood Cells % 0 %; Platelet Count 261 10^3/cmm (157-399); Red Blood Count 4.12 10^6/uL (3.85-5.65); White Blood Count 13.50 10^3/uL (3.29-11.43)
[2025-08-23 23:15] LABS: Glucose Urine UA Negative (Normal); Nitrate Urine Negative (Negative); Specific Gravity, Urine 1.022 (1.005-1.030)
[2025-08-23 23:19] LABS: Alanine Aminotransferase 14 U/L (0-33); Albumin Level 3.4 g/dL (3.5-5.2); Alkaline Phosphatase 137 U/L (35-105); Anion Gap 17.1 (5-19); Aspartate Amino Transferase 16 U/L (0-32); Blood Urea Nitrogen 6 mg/dL (6-20); Calcium 8.7 mg/dL (8.5-10.5); Carbon Dioxide 19 mmol/L (22-29); Chloride 104 mmol/L (98-107); Globulin 3.2 g/dL (1.3-4.6); Glucose 86 mg/dL (65-115); Osmolality Calculated 279 mOsm/kg (285-295); Potassium 4.1 mmol/L (3.5-5.1); Sodium 136 mmol/L (136-145); Total Protein 6.6 g/dL (6.6-8.7); Uric Acid 3.6 mg/dL (2.4-5.7)
[2025-08-23 23:20] LABS: Add Urine Microscopic? YES
[2025-08-23 23:35] LABS: UPRO/UCREAT Ratio 0.07 mg/mg CR
[2025-08-24 00:05] VITALS: BP 122/58; PULSE 76
[2025-08-24 00:25] VITALS: BP 105/58; PULSE 81
[2025-08-24 00:46] VITALS: BP 118/55; PULSE 90
[2025-08-24 01:05] VITALS: BP 116/65; PULSE 75
[2025-08-24 01:25] VITALS: BP 109/54; PULSE 76
[2025-08-24 01:33] VITALS: BP 109/54; PULSE 76; RESP 16; O2SAT 98
== END 2025-08-24 01:43 | disposition home or self-care (01) ==
LOC: OPOB 22:09 → OBGYN 22:10
PROVIDERS: Visit Provider Obstetrics & Gynecology
DX: O36.8190 Decreased fetal movements, unspecified trimester, not applicable or unspecified (principal); R42 Dizziness and giddiness; R51.9 Headache, unspecified; R11.0 Nausea
CPT/HCPCS: 36415; 59025; 80053; 81001; 82570; 84156; 84550; 85025; 99211; J9999

== ENCOUNTER 2025-09-01 22:33 | Outpatient (CLI) | payer MEDICAID, SELFPAY ==
[2023-11-25 12:41] VITALS: BP 123/81; BMI 32.5
[2025-09-01 22:46] VITALS: BMI 41.0
[2025-09-01 23:13] LABS: Glucose Urine UA Negative (Normal); Nitrate Urine Negative (Negative); Specific Gravity, Urine 1.008 (1.005-1.030)
[2025-09-01 23:38] VITALS: BP 149/101; PULSE 106
[2025-09-01 23:40] VITALS: BP 170/106; PULSE 84
[2025-09-01 23:42] VITALS: BP 153/101; PULSE 86
[2025-09-01 23:53] VITALS: BP 136/64; PULSE 87
[2025-09-02] VITALS (9 sets, daily range): BP systolic 134–146; BP diastolic 70–90; PULSE 74–86; RESP 18; TEMP 36.8; O2SAT 99
--- NOTE | 2025-09-02 00:23 | USR_ITS ---
PROCEDURE INFORMATION: Exam: US Retroperitoneal, Complete, Kidneys and Bladder Exam date and time: 09/02/2025 12:38 AM Age: 24 years old Clinical indication: Abdominal pain; Acute; ; Additional info: Possible kidney stone TECHNIQUE: Imaging protocol: Real-time ultrasound of the retroperitoneum with image documentation. Complete exam focused on the bilateral kidneys and urinary bladder. COMPARISON: US OB follow up [facility] 08/22/2025 10:23 AM FINDINGS: Right kidney: Normal. No stones. No hydronephrosis. Left kidney: Normal. No stones. No hydronephrosis. Urinary bladder: Unremarkable. US/US renal BI* [id number] IMPRESSION: Unremarkable kidneys and bladder.
[2025-09-02 00:37] LABS: Alanine Aminotransferase 17 U/L (0-33); Albumin Level 3.3 g/dL (3.5-5.2); Alkaline Phosphatase 119 U/L (35-105); Blood Urea Nitrogen 7 mg/dL (6-20); Calcium 9.3 mg/dL (8.5-10.5); Carbon Dioxide 23 mmol/L (22-29); Chloride 104 mmol/L (98-107); Globulin 2.8 g/dL (1.3-4.6); Glucose 82 mg/dL (65-115); Osmolality Calculated 281 mOsm/kg (285-295); Sodium 137 mmol/L (136-145); Total Protein 6.1 g/dL (6.6-8.7)
[2025-09-02 00:38] LABS: Anion Gap 14.2 (5-19); Aspartate Amino Transferase 25 U/L (0-32); Potassium 4.2 mmol/L (3.5-5.1)
[2025-09-02 00:40] LABS: Hematocrit 31.0 % (36-47); Hemoglobin 10.10 g/dL (11.27-16.99); Mean Corpuscular HGB Conc 32.6 g/dL (30-55); Mean Corpuscular Hemoglobin 27.0 pg (27-33); Mean Corpuscular Volume 82.9 fl (85-98); Nucleated Red Blood Cells % 0 %; Platelet Count 277 10^3/cmm (157-399); Red Blood Count 3.74 10^6/uL (3.85-5.65); White Blood Count 12.96 10^3/uL (3.29-11.43)
== END 2025-09-02 00:35 | disposition home or self-care (01) ==
LOC: OPOB 22:38 → OBGYN 22:39
PROVIDERS: Visit Provider Obstetrics & Gynecology
DX: O26.899 Other specified pregnancy related conditions, unspecified trimester (principal); Z3A.00 Weeks of gestation of pregnancy not specified; R30.0 Dysuria
CPT/HCPCS: 59025; 76770; 80053; 81001; 85025; 99211; J7030